=== PATIENT | female | born 1945 | race Caucasian/White ===

== ENCOUNTER 2017-07-10 05:16 | Inpatient (IN) | payer MEDICARE ==
[~2017-07-10] VITALS: Ht 162.6 cm; Wt 93.4 kg
[~2017-07-10 05:16] MED LIST: ACYCLOVIR 800800 MG PO; ATORVASTATIN CA40 MG PO; AZELASTINE205.5 MCG/ NASAL; COQ-10100 MG PO; ELIQUIS5 MG PO; FISH OIL 1,2001 EAC3 PO; FLONASE 0.05%50 MCG NASAL; KLOR-CON 1010 MEQ PO; LASIX 20 MG TAB20 MG PO; LOPRESSOR50 PO; MULTIVITAMINS PO; OSTEO BI-FLEX1 EAC3 PO; OYSTER SHELL 51 EACH PO; PREDNISONE 10 M10 MG PO; PROZAC20 MG PO; SYNTHROID75 MCG PO; VERTICALM25 MG PO; VITAMIN B-12500 MCG PO
[2017-07-10 05:44] VITALS: BP 97/49
[2017-07-10 06:03] LABS: ABSOLUTE EOSINOPHILS 0.3 thou/uL (0.0-0.7); ABSOLUTE MONOCYTES 0.6 thou/uL (0.0-1.2); ABSOLUTE NEUTROPHILS 2.4 thou/uL (1.6-8.1); BASOPHILS 0.6 %; EOSINOPHILS 4.8 %; HEMATOCRIT 41.3 % (37.0-47.0); HEMOGLOBIN 13.9 gm/dL (12.0-15.0); LYMPHOCYTES 38.6 %; MCH 29.2 pg (26.0-34.0); MCHC 33.7 g/dL (28.0-37.0); MCV 86.5 fL (80.0-100.0); MONOCYTES 11.2 %; MPV 7.8 fl. (7.2-11.1); NUCLEATED RBCS 0 /100WBC; PLATELET COUNT* 166 thou/uL (150-400); POLYS 44.8 %; RBC 4.78 mil/uL (4.20-5.00); WBC 5.3 thou/uL (4.0-11.0)
[2017-07-10 06:15] LABS: ANION GAP 4 mmol/L (7-16); BUN 17 mg/dL (7-18); CALCIUM 8.5 mg/dL (8.5-10.1); CHLORIDE 100 mmol/L (98-107); CO2 26 mmol/L (21-32); GLUCOSE 165 mg/dL (70-99); POTASSIUM 3.4 mmol/L (3.5-5.1); SODIUM 130 mmol/L (136-145)
[2017-07-10 06:27] LABS: ALBUMIN 3.5 g/dL (3.4-5.0); ALKALINE PHOSPHATASE 36 U/L (46-116); LIPASE 154 U/L (73-393); MAGNESIUM 1.8 mg/dL (1.8-2.4); NT-PRO BRAIN NAT PEPTIDE 275 pg/mL (<300); SGOT 46 U/L (15-37); SGPT 78 U/L (30-65); TOTAL BILIRUBIN 0.5 mg/dL (<0.1-1.0); TOTAL PROTEIN 6.6 g/dL (6.4-8.2); TROPONIN-I LEVEL <0.06 ng/mL (<0.06)
--- NOTE | 2017-07-10 06:45 | NUR ---
REASSESSED PT, PT APPEARS PALE, WARM, DIAPHORETIC, AND STATES SHE FEELS "BAD." PT OBSERVED TO BE MORE BRADYCARDIC THAT BEFORE, ORDERS FOR ATROPINE 0.5 AMP REC EIVED FROM DR MOHAN, SEE EMAR.
[2017-07-10 07:52] LABS: APTT 28.6 Seconds (25.0-31.3); INR 1.1
[2017-07-10 08:08] VITALS: BP 128/56
--- NOTE | 2017-07-10 10:13 | NUR ---
NOTIFIED BY CARDIOLOGY NURSE,MODE,THAT PT.IS HAVING AN AORTIC DISSECTION AND NEEDS TO BE TRANSFERRED TO [facility]. NSG.FOOD SERVICE LEAD TALKING TO [facility] TRANSFER TEAM. ACCEPTING DR.IS . SPOKE WITH HIM. CM CALLED [facility] AND EXPLAINED SITUATION BUT AMBULANCE FORM NOT FAXED YET. THEY WILL SEND AMBULANCE NOW. PAPERWORK COMPLETED. FAXED AMBULANCE FORM TO [facility] AM[facility]ANCE. CHART COPIED BY [place]. AND DISC OBTAINED FROM RADIOLOGY. PT.AND FAMILY AWARE OF TRANFER. COPY OF TRANSFER FORM PUT IN CHART PACKET. ROSALIA BASHIR GAVE REPORT TO RN AT [facility].
--- NOTE | 2017-07-10 11:19 | NUR ---
PT ARRIVED ON THE UNIT AT 0820 FROM THE ER. REPORT WAS TAKEN FROM ROSALIA [place]. PT ON CARDIAC MONITER TRACING SB HR 54. PT C/O CHEST PAIN DESCRIBED DULL RATED A 3 ON PAIN SCALE. PT IS ON ROOM AIR AND IS AFEBRILE. PT KEPT NPO PER CARDIOLOGY. PT DOWN FOR A CT SCAN. DR MEHTA CALLED TO REPORT PT PROBABLE FOR AORTIC DISECTION. PAGED DR MARSHALL TO CALL DR MEHTA. ZAFAR ROBERTSON SAW PT. PT TRANSFERRED TO [facility] AMBULANCE. PT LEFT THE FACILITY AT 1040. REPORT GIVEN TO ROSALIA LEWIS.
--- NOTE | 2017-07-10 14:38 | EKG ---
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1945 Requested By: Flavio Silveira Order Number: [id number] MD: Corby Vinson Measurements Intervals [place] Rate: 49 P: 25 NM: 209 QRS: 20 QRSD: 107 T: 28 QT: 488 QTc: 441 Interpretive Statements Sinus bradycardia Borderline T abnormalities, lateral leads Baseline wander in lead(s) I,III,aVL,V1,V2,V3,V4 Compared to ECG 10/30/2016 09:59:09 T-wave abnormality now present Sinus rhythm no longer present Myocardial infarct finding no longer present Electronically Signed On 07-10-2017 14:37:55 CDT by Corby Vinson [email or web address] <ELECTRONICALLY SIGNED> By: Cata Vinson MD, [facility] 07/10/17 1437 0533 Cata Vinson MD, [facility] /EPI
--- NOTE | 2017-07-11 13:31 | CON ---
[address] [address] CONSULTATION Name: DIANA BRISENO Room: [address] IN M.R.#: [id number] Admission: 07/10/17 Attend Phys: Fara De Dios MD Discharge: 07/10/17 Date of : 41 Report #: [id number] THIS REPORT FOR: //name// CC: Fara Muniz CARDIOLOGY CONSULTATION HISTORY OF PRESENT ILLNESS: I was asked by Dr. De Dios, the hospitalist and Dr. Silveira from the Emergency Room to see this 72-year-old white female in consultation for evaluation and treatment of bradycardia and chest pain. This lady was awakened at about 4 a.m. with severe of 10/10 chest pain involving her upper chest as well as her back that radiated down both arms and up into her neck and jaw. She says the pain is difficult to describe. It was just severe. She came to the Emergency Room and ultimately was found to have an acute aortic dissection involving the ascending aorta from the root and involving the transverse aorta as well, especially the proximal transverse aorta. She had some sinus bradycardia associated with this that was likely vagal secondary to the pain. This lady does have a past history of paroxysmal atrial fibrillation, essential hypertension, hypercholesterolemia, hypothyroidism, and mild to moderate aortic insufficiency. She has been followed by Dr. Rosenberg in our office. She has never had any vascular issues previously. Her home medications include potassium chloride 10 mEq daily, Eliquis 5 mg b.i.d., Azelastine nasal spray daily, Flonase nasal spray daily, Prozac 20 mg daily, metoprolol 50 mg b.i.d. She is supposed to also been on atorvastatin 40 mg daily and Lasix 20 mg daily, however, she may have discontinued those. She tells me in no uncertain terms that she did in fact have her Eliquis yesterday morning and last night. She denies difficulty with dyspnea on exertion, shortness of breath at rest, orthopnea or PND. She has not had edema. She has not had syncope or near syncope. Coronary risk factors include hypercholesterolemia, she says diabetes, she is not on any diabetic medicine, but she does check her blood sugar regularly and apparently has non-insulin dependent diabetes mellitus treated medically. She is treated with diet only apparently. She has high blood pressure. She has not been a smoker. She has not had a family history of heart disease. She has not had renal disease. She has had a stroke in the past. She has not had claudication. She does have a history of paroxysmal atrial fibrillation as previously mentioned. ALLERGIES: She has no known allergies. REVIEW OF SYSTEMS: Positive for cough, palpitations, chest discomfort, extremity edema in the distant past, diabetes, thyroid trouble, vomiting in the Emergency Room, which may have been the issue that was associated with her bradycardia and seasonal allergies. Otherwise, review of systems is negative for some 40 different complaints in 14 different system categories including central nervous system, general, respiratory, cardiovascular, endocrine, gastrointestinal, genitourinary, hematologic, lymphatic, allergic, immunologic, [place] [address] CONSULTATION Name: DIANA BRISENO Room: [address]#: [id number] Admission: 07/10/17 Attend Phys: Fara De Dios MD Discharge: 07/10/17 Date of : 41 Report #: [id number] psychiatric, musculoskeletal, skin, eyes, ears, nose, mouth, and throat. Please see review of system form for details and negatives in review of systems. SOCIAL HISTORY: She is . She is retired, does not smoke, drink or use illegal drugs. FAMILY HISTORY: Her mother did have a history of heart failure. She has a sister who of cancer and a brother who has diabetes. PHYSICAL EXAMINATION: GENERAL: She presents as a well-developed, well-nourished white female in no acute distress. VITAL SIGNS: Her pulse was 55 and regular, blood pressure was 120/80, respirations are 16 and regular. She is clinically afebrile. Note she was mildly hypotensive earlier with a blood pressure in the 90s. That was likely when she was also vagal. Respirations are 16 and regular. She is clinically afebrile. HEENT: Her head was atraumatic. Eyes clear. NECK: Supple. There is no jugular venous distention or hepatojugular reflux. Thyroid is not enlarged. There is no adenopathy. SKIN: Warm and dry. MOUTH: Mucous membranes are moist. LUNGS: Clear to auscultation and percussion. HEART: Revealed normal first and second heart sound. There is soft S4. There is no S3. There are no murmurs, rubs, thrills, heaves or gallops. PMI is nondisplaced. ABDOMEN: Soft, flat, nontender, no palpable masses, no organomegaly. EXTREMITIES: Reveal no cyanosis, clubbing or edema. Her pulses are diminished in her upper extremities and in her carotids. Her EKG showed sinus bradycardia, otherwise it was unremarkable. IMPRESSION: 1. Acute aortic dissection as described above. 2. Paroxysmal atrial fibrillation. 3. Essential hypertension. 4. Hypercholesterolemia. 5. Non-insulin dependent diabetes mellitus. 6. Hypothyroidism. 7. Sinus bradycardia, likely secondary to excessive vagal state. 8. Mild to moderate aortic insufficiency. 9. Status post cerebrovascular accident. RECOMMENDATION: She should be transferred to [place]. She is likely going to need surgery today. She should have her Eliquis reversed with PCC or Cofact [place] [address] CONSULTATION Name: DIANA BRISENO Room: [address]#: [id number] Admission: 07/10/17 Attend Phys: Fara De Dios MD Discharge: 07/10/17 Date of : 41 Report #: [id number] Thank you very much for asking me to see the patient. If there are any questions, please feel free to contact me. <ELECTRONICALLY SIGNED> By: Cata Vinson MD, FACC 07/11/17 1331 1057 1450F. Corby Vinson MD, FAC /nt
== END 2017-07-10 10:40 | disposition short-term general hospital (02) | DRG 300 ==
LOC: M.ERS 05:16 → M.TBA-ER 06:51 → M.2W 08:43
PROVIDERS: Emergency Medicine Emergency Medical Services; Personal Emergency Response Attendant; ADMIT Internal Medicine
DX: I71.01 Dissection of thoracic aorta (principal); I74.11 Embolism and thrombosis of thoracic aorta; E11.9 Type 2 diabetes mellitus without complications; I48.91 Unspecified atrial fibrillation; F32.9 Major depressive disorder, single episode, unspecified; I48.0 Paroxysmal atrial fibrillation; E78.00 Pure hypercholesterolemia, unspecified; E03.9 Hypothyroidism, unspecified; R00.1 Bradycardia, unspecified; I35.1 Nonrheumatic aortic (valve) insufficiency; Z79.01 Long term (current) use of anticoagulants; Z86.73 Personal history of transient ischemic attack (TIA), and cerebral infarction without residual deficits; Z86.010 Personal history of colon polyps; Z82.49 Family history of ischemic heart disease and other diseases of the circulatory system; Z83.3 Family history of diabetes mellitus

== ENCOUNTER 2017-08-19 16:29 | Inpatient (IN) | payer MEDICARE ==
[~2017-08-19] VITALS: Ht 162.6 cm; Wt 83.5 kg
[2017-08-19 16:34] VITALS: BP 150/78
[2017-08-19] MEDS ORDERED: PACERONE 200 M200 M1 PO (16:43)
[2017-08-19] MEDS ORDERED: ATORVASTATIN CA40 MG PO (16:44)
[2017-08-19] MEDS ORDERED: COLACE100 MG PO (16:45)
[2017-08-19] MEDS ORDERED: PEPCID20 MG PO (16:45)
[2017-08-19] MEDS ORDERED: LASIX 20 MG TAB20 MG PO (16:46)
[2017-08-19] MEDS ORDERED: PRANDIN1 MG PO (16:48)
[2017-08-19] MEDS ORDERED: BACTRIM DS TAB1 EACH PO (16:51)
[2017-08-19 16:54] LABS: ABSOLUTE EOSINOPHILS 0.1 thou/uL (0.0-0.7); ABSOLUTE LYMPHOCYTES 1.6 thou/uL (0.8-5.3); ABSOLUTE MONOCYTES 0.8 thou/uL (0.0-1.2); ABSOLUTE NEUTROPHILS 4.8 thou/uL (1.6-8.1); BASOPHILS 0.7 %; EOSINOPHILS 1.8 %; HEMATOCRIT 39.2 % (37.0-47.0); HEMOGLOBIN 13.2 gm/dL (12.0-15.0); LYMPHOCYTES 21.4 %; MCH 29.4 pg (26.0-34.0); MCHC 33.8 g/dL (28.0-37.0); MONOCYTES 10.7 %; MPV 7.3 fl. (7.2-11.1); NUCLEATED RBCS 0 /100WBC; PLATELET COUNT* 187 thou/uL (150-400); POLYS 65.4 %; RBC 4.51 mil/uL (4.20-5.00); RDW-CV 15.4 % (10.5-14.5); WBC 7.4 thou/uL (4.0-11.0)
[2017-08-19 17:06] LABS: ANION GAP 10 mmol/L (7-16); BUN 23 mg/dL (7-18); CALCIUM 9.1 mg/dL (8.5-10.1); CHLORIDE 99 mmol/L (98-107); CO2 28 mmol/L (21-32); CREATININE 1.4 mg/dL (0.6-1.3); GLUCOSE 128 mg/dL (70-99); POTASSIUM 3.9 mmol/L (3.5-5.1); SODIUM 137 mmol/L (136-145)
[2017-08-19 17:14] LABS: ALBUMIN 4.1 g/dL (3.4-5.0); ALKALINE PHOSPHATASE 98 U/L (46-116); LIPASE 273 U/L (73-393); SGOT 56 U/L (15-37); SGPT 75 U/L (30-65); TOTAL BILIRUBIN 0.5 mg/dL (<0.1-1.0); TOTAL PROTEIN 7.7 g/dL (6.4-8.2); TROPONIN-I LEVEL <0.06 ng/mL (<0.06)
[2017-08-19 19:44] LABS: URINE BILIRUBIN NEGATIVE (Negative); URINE BLOOD NEGATIVE (Negative); URINE CLARITY CLEAR; URINE COLOR YELLOW; URINE GLUCOSE-RANDOM NEGATIVE (Negative); URINE KETONES NEGATIVE (Negative); URINE LEUKOCYTES-REFLEX NEGATIVE (Negative); URINE NITRITE-REFLEX NEGATIVE (Negative); URINE PROTEIN NEGATIVE (Negative); URINE SPECIFIC GRAVITY 1.015 (1.005-1.030); URINE UROBILINOGEN 0.2 E.U./dl (0.2-1.0)
[2017-08-19 20:41] VITALS: BP 148/71
[2017-08-20] VITALS (7 sets, daily range): BP systolic 118–157; BP diastolic 53–74
[2017-08-20 09:37] LABS: ABSOLUTE EOSINOPHILS 0.1 thou/uL (0.0-0.7); ABSOLUTE LYMPHOCYTES 1.3 thou/uL (0.8-5.3); ABSOLUTE MONOCYTES 0.4 thou/uL (0.0-1.2); ABSOLUTE NEUTROPHILS 2.6 thou/uL (1.6-8.1); BASOPHILS 0.8 %; EOSINOPHILS 3.4 %; HEMATOCRIT 36.3 % (37.0-47.0); HEMOGLOBIN 12.2 gm/dL (12.0-15.0); LYMPHOCYTES 28.7 %; MCH 29.3 pg (26.0-34.0); MCHC 33.5 g/dL (28.0-37.0); MCV 87.3 fL (80.0-100.0); MONOCYTES 8.2 %; MPV 7.4 fl. (7.2-11.1); NUCLEATED RBCS 0 /100WBC; PLATELET COUNT* 145 thou/uL (150-400); POLYS 58.9 %; RBC 4.16 mil/uL (4.20-5.00); RDW-CV 15.8 % (10.5-14.5); WBC 4.4 thou/uL (4.0-11.0)
[2017-08-20 09:44] LABS: CALCIUM 8.4 mg/dL (8.5-10.1); POTASSIUM 4.9 mmol/L (3.5-5.1)
[2017-08-20] MEDS ORDERED: COZAAR 25 MG TA25 M2 PO (11:36)
--- NOTE | 2017-08-20 17:07 | EKG ---
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 Santo : 1945 Requested By: Flavio Silveira Order Number: [id number] MD: Lobito Rosenberg Measurements Intervals [place] Rate: 61 P: 71 MN: 205 QRS: 4 QRSD: 110 T: 68 QT: 474 QTc: 478 Interpretive Statements Sinus rhythm Probable anterior infarct, old Compared to ECG 07/10/2017 05:33:33 Myocardial infarct finding now present Sinus bradycardia no longer present T-wave abnormality no longer present Electronically Signed On 08-20-2017 17:07:12 CDT by Lobito Rosenberg [email or web address] <ELECTRONICALLY SIGNED> By: Lobito Rosenberg MD, FAC 08/20/17 1707 1636 1636 Lobito Rosenberg MD, FAC /EPI
--- NOTE | 2017-08-25 08:49 | CON ---
[address] [address] CONSULTATION Name: DIANA BRISENO Room: [address] IN M.R.#: [id number] Admission: 08/19/17 Attend Phys: Kiet Adams Discharge: 08/20/17 Date of : 41 Report #: [id number] THIS REPORT FOR: //name// CC: Jessenia Cristy Alcantara DATE OF SERVICE: 08/20/2017 INPATIENT CONSULTATION REASON FOR CONSULTATION: Hypotension, orthostasis, status post aortic root resection, repair. HISTORY OF PRESENT ILLNESS: The patient is a 72-year-old patient of Dr. Vinson in our practice who diagnosed this patient with type 1 aortic root dissection and she was transferred urgently on 07/11/2017 to [facility] for repair with Dr. Cat. She was in the hospital for approximately 2 weeks and then in rehab for another 2-3 weeks and had been back in the hospital for urinary tract infection, but now was seen in her doctor's office and was found to be orthostatic. She has a history of remote malignant hypertension. Clinically, she has been given IV fluids and feels better this morning, has been up and around. On initial presentation, she was orthostatic. Her systolic pressure dropped from 156/76 to 118/52. She denies chest pain or pressure. She has a history of atrial fibrillation, but has maintained a sinus rhythm on amiodarone and full anticoagulation. She denies falls. She has continued weakness after being discharged from rehab. She never really had much in the way of chest or back pain at the time of her initial dissection procedure and this wound has healed well and she has no complaints of chest wall pain or chest discomfort. PAST MEDICAL HISTORY: Ascending aortic aneurysm status post resection, dissection; atrial fibrillation, paroxysmal; hypertension, malignant; diverticulosis; history of glaucoma and hyperlipidemia. She has a prior history of CVA in 2012 and had been on full anticoagulation with Eliquis. HOME MEDICATIONS: Including amiodarone 200 mg daily, Eliquis 5 mg p.o. b.i.d., baby aspirin 81 mg daily, Lipitor 40 mg daily, CoQ10, famotidine 20 mg daily, Prozac 20 mg daily, Flonase, Lasix 20 mg daily, Synthroid 112 mcg daily, metoprolol 50 mg p.o. b.i.d., losartan 25 mg p.o. b.i.d., [place] [address] CONSULTATION Name: DIANA BRISENO Room: [address]#: [id number] Admission: 08/19/17 Attend Phys: Kiet Adams Discharge: 08/20/17 Date of : 41 Report #: [id number] 10 mEq daily. SOCIAL HISTORY: She is a nonsmoker. She is . REVIEW OF SYSTEMS: GASTROINTESTINAL: No abdominal pain, nausea or vomiting. GENITOURINARY: No dysuria or hematuria. Positive urinary tract infection, which has since resolved. SKIN: No rashes. No incisional drainage or swelling. GENERAL: No fevers or chills. CHEST: Chest wall, she denies any incisional chest pain or redness. NEUROLOGIC: Denies slurred speech, numbness or weakness. PHYSICAL EXAMINATION: VITAL SIGNS: This morning, her blood pressure is 118/57, pulse is 89. GENERAL: This is a moderately obese elderly female. She is alert, coherent, in no apparent distress. HEENT: Eyes: EOMs intact. No facial asymmetry NECK: Supple. No jugular venous distention. Carotid upstrokes are normal. There are no bruits. CARDIOVASCULAR: Regular. I could not hear a murmur. ABDOMEN: Soft, nontender, nondistended. EXTREMITIES: No peripheral edema. SKIN: Warm and dry. Electrocardiogram shows a sinus rhythm, normal ST segments. LABORATORY DATA: Hemoglobin is 12.2, white blood cell count is 4.4, platelet count is 145,000. Sodium is 141, potassium 4.9, chloride is 106, CO2 is 30, BUN is 14, creatinine is 1.0. Chest x-ray shows no acute cardiopulmonary abnormality. IMPRESSION AND PLAN: 1. Orthostasis. We will make some adjustments to her medications. She has not really been having much edema over the last several days, so I will discontinue her Lasix. I will decrease her losartan, to once daily. 2. Hypertension. I would like to resume her beta vilma therapy and one dose of losartan. 3. Status post aortic root repair. She is doing well postoperatively, but still has ways to go in regards to rehabilitation. I would like to enroll her in cardiac rehab at this hospital. 4. Atrial fibrillation, paroxysmal. She will continue with amiodarone and [address] [address] CONSULTATION Name: DIANA BRISENO: [address] IN M.R.#: [id number] Admission: 08/19/17 Attend Phys: Kiet Adams Discharge: 08/20/17 Date of : 41 Report #: [id number] apixaban until followup and likely will discontinue her amiodarone in the next month or so. <ELECTRONICALLY SIGNED> By: Lobito Rosenberg MD, FACC 08/25/17 0849 1030 1223Lobito Rosenberg MD, FACC /nt
== END 2017-08-20 12:30 | disposition home or self-care (01) | DRG 683 ==
LOC: M.ERS 16:29 → M.2W 18:38 → M.TBA-ER 18:38 → M.2W 20:49
PROVIDERS: Emergency Medicine Emergency Medical Services; Internal Medicine; ADMIT Internal Medicine
DX: N17.9 Acute kidney failure, unspecified (principal); D68.69 Other thrombophilia; I95.1 Orthostatic hypotension; E11.9 Type 2 diabetes mellitus without complications; F32.9 Major depressive disorder, single episode, unspecified; I48.0 Paroxysmal atrial fibrillation; I10 Essential (primary) hypertension; E86.0 Dehydration; E78.5 Hyperlipidemia, unspecified; H40.9 Unspecified glaucoma; K57.90 Diverticulosis of intestine, part unspecified, without perforation or abscess without bleeding; Z86.73 Personal history of transient ischemic attack (TIA), and cerebral infarction without residual deficits; Z79.82 Long term (current) use of aspirin; Z79.899 Other long term (current) drug therapy

== ENCOUNTER 2017-08-31 16:55 | Inpatient (IN) | payer MEDICARE ==
[~2017-08-31] VITALS: Ht 162.6 cm; Wt 79.7 kg
[~2017-08-31 16:55] MED LIST changes: +BACTRIM DS TAB1 EACH PO; +COLACE100 MG PO; +COZAAR 25 MG TA25 M2 PO; +PACERONE 200 M200 M1 PO; +PEPCID20 MG PO; +PRANDIN1 MG PO
[2017-08-31 16:59] VITALS: BP 173/92
[2017-08-31 17:13] LABS: ABSOLUTE EOSINOPHILS 0.1 thou/uL (0.0-0.7); ABSOLUTE LYMPHOCYTES 1.5 thou/uL (0.8-5.3); ABSOLUTE MONOCYTES 0.6 thou/uL (0.0-1.2); ABSOLUTE NEUTROPHILS 5.6 thou/uL (1.6-8.1); BASOPHILS 0.3 %; EOSINOPHILS 1.8 %; HEMATOCRIT 39.2 % (37.0-47.0); HEMOGLOBIN 13.3 gm/dL (12.0-15.0); MCH 29.5 pg (26.0-34.0); MCV 86.9 fL (80.0-100.0); MONOCYTES 7.1 %; MPV 7.3 fl. (7.2-11.1); NUCLEATED RBCS 0 /100WBC; PLATELET COUNT* 156 thou/uL (150-400); POLYS 71.8 %; RBC 4.51 mil/uL (4.20-5.00); RDW-CV 15.4 % (10.5-14.5); WBC 7.9 thou/uL (4.0-11.0)
[2017-08-31 17:23] LABS: APTT 27.5 Seconds (25.0-31.3); INR 1.1; PROTIME 10.8 Seconds (9.20-11.50)
[2017-08-31 17:30] LABS: ANION GAP 7 mmol/L (7-16); BUN 17 mg/dL (7-18); CALCIUM 8.9 mg/dL (8.5-10.1); CHLORIDE 102 mmol/L (98-107); CO2 31 mmol/L (21-32); CREATININE 0.8 mg/dL (0.6-1.3); GLUCOSE 106 mg/dL (70-99); POTASSIUM 4.6 mmol/L (3.5-5.1); SODIUM 140 mmol/L (136-145)
[2017-08-31 17:48] LABS: ALBUMIN 3.8 g/dL (3.4-5.0); ALKALINE PHOSPHATASE 69 U/L (46-116); CK-MB MASS 0.5 ng/mL (<0.5-3.6); LIPASE 263 U/L (73-393); MAGNESIUM 1.8 mg/dL (1.8-2.4); NT-PRO BRAIN NAT PEPTIDE 380 pg/mL (<300); SGOT 49 U/L (15-37); SGPT 60 U/L (30-65); TOTAL BILIRUBIN 0.7 mg/dL (<0.1-1.0); TOTAL PROTEIN 7.2 g/dL (6.4-8.2); TROPONIN-I LEVEL <0.06 ng/mL (<0.06)
[2017-08-31 19:51] VITALS: BP 170/68
[2017-08-31 20:10] VITALS: BP 146/66
[2017-08-31] MEDS ORDERED: LOPRESSOR50 PO (21:29)
[2017-08-31] MEDS ORDERED: LOPRESSOR25 PO (21:31)
[2017-08-31 23:57] VITALS: BP 151/77
[2017-09-01 04:00] VITALS: BP 125/81
[2017-09-01 05:35] LABS: HEMATOCRIT 36.5 % (37.0-47.0); HEMOGLOBIN 12.5 gm/dL (12.0-15.0); MCH 29.3 pg (26.0-34.0); MCHC 34.3 g/dL (28.0-37.0); MCV 85.6 fL (80.0-100.0); MPV 7.9 fl. (7.2-11.1); RBC 4.26 mil/uL (4.20-5.00); RDW-CV 15.4 % (10.5-14.5); WBC 5.1 thou/uL (4.0-11.0)
[2017-09-01 06:22] LABS: ALBUMIN 3.4 g/dL (3.4-5.0); CALCIUM 8.6 mg/dL (8.5-10.1); CREATININE 0.9 mg/dL (0.6-1.3); TOTAL BILIRUBIN 0.6 mg/dL (<0.1-1.0); TOTAL PROTEIN 6.2 g/dL (6.4-8.2)
[2017-09-01 12:00] VITALS: BP 158/73
[2017-09-01 12:05] VITALS: BP 131/68
[2017-09-01 12:08] VITALS: BP 119/53
--- NOTE | 2017-09-01 13:01 | EKG ---
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1945 Requested By: Jed Celis Order Number: [id number] MD: Filipe Molina Measurements Intervals [place] Rate: 62 P: [place]: QRS: 30 QRSD: 120 T: 4 QT: 463 QTc: 471 Interpretive Statements Atrial flutter Nonspecific intraventricular conduction delay Consider anterior infarct Nonspecific T abnormalities, lateral leads Compared to ECG 08/19/2017 16:36:15 Intraventricular conduction delay now present T-wave abnormality now present Myocardial infarct finding still present Electronically Signed On 09-01-2017 13:01:29 CDT by Filipe Molina [email or web address] <ELECTRONICALLY SIGNED> By: Filipe Molina MD, [facility] 09/01/17 1301 1657 1657 Filipe Molina MD, [facility] /EPI
--- NOTE | 2017-09-01 13:07 | EKG ---
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[facility] : 1945 Requested By: Jed Celis Order Number: [id number] Nita MD: Filipe Molina Measurements Intervals [place] Rate: 69 P: 47 HI: 207 QRS: 41 QRSD: 117 T: 20 QT: 429 QTc: 460 Interpretive Statements Sinus rhythm Nonspecific intraventricular conduction delay Consider anterior infarct Compared to ECG 08/19/2017 16:36:15 Intraventricular conduction delay now present Myocardial infarct finding still present Electronically Signed On 09-01-2017 13:07:27 CDT by Filipe Molina [email or web address] <ELECTRONICALLY SIGNED> By: Filipe Molina MD, [facility] 09/01/17 1307 0010 0010 Filipe Molina MD, [facility] /EPI
--- NOTE | 2017-09-01 13:11 | EKG ---
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[facility] : 1945 Requested By: Jed Celis Order Number: [id number] Reading MD: Filipe Molina Measurements Intervals [place] Rate: 70 P: 57 [place]: 194 QRS: 36 QRSD: 117 T: 45 QT: 437 QTc: 472 Interpretive Statements Sinus rhythm Probable left ventricular hypertrophy Anterior Q waves, possibly due to LVH Compared to ECG 08/19/2017 16:36:15 Left ventricular hypertrophy now present Q waves now present Electronically Signed On 09-01-2017 13:11:43 CDT by Filipe Molina [email or web address] <ELECTRONICALLY SIGNED> By: Filipe Molina MD, [facility] 09/01/17 1311 0510 0510 Filipe Molina MD, [facility] /EPI
--- NOTE | 2017-09-01 14:17 | 2DMMODE ---
[place] [address] 2 D/M-MODE ECHOCARDIOGRAM Name: DIANA BRISENO Room: [place] [address] ADM IN [facility]#: [id number] Admission: 08/31/17 Attend Phys: Fara De Dios, Discharge: Date of : 41 Date of Service: 09/01/17 1417 Report #: [id number] THIS REPORT FOR: //name// APPROVED REPORT Study performed: 09/01/2017 10:43:55 EXAM: Comprehensive 2D, Doppler, and color-flow Echocardiogram Patient Location: In-Patient Room #: [facility] Status: routine BSA: 1.88 HR: 66 bpm BP: 125/81 mmHg Rhythm: NSR Other Information Study Quality: Good Indications Chest Pain hx of aortic root dissection 2D Dimensions LVEF(%): 51.68 (>50%) IVSd: 11.38 (7-11mm) LVOT Diam: 19.37 (18-24mm) LVDd: 38.52 mm PWd: 12.82 (7-11mm) LVDs: 28.52 (25-40mm) Aortic Root: 34.27 mm Scott's LVEF: 51.68 % Volumes Left Atrial Volume (Systole) LA ESV Index: 31.50 mL/m2 Aortic Valve AoV Peak Charles.: 1.66 m/s AO Peak Gr.: 11.05 mmHg LVOT Max P.95 mmHg AO Mean Gr.: 6.61 mmHg LVOT Mean P.55 mmHg LVOT Max V: 0.86 m/s AO V2 VTI: 34.79 cm LVOT Mean V: 0.57 m/s ANNIE (VTI): 1.66 cm2 LVOT V1 VTI: 19.64 cm AI Coleman: 3.00 m/s2 AI PHT: 493.18 [place] [address] 2 D/M-MODE ECHOCARDIOGRAM Name: DIANA BRISENO Room: [address] IN .R.#: [id number] Admission: 08/31/17 Attend Phys: Fara De Dios, Discharge: Date of : 41 Date of Service: 09/01/17 1417 Report #: [id number] Mitral Valve E/A Ratio: 0.81 MV Decel. Time: 238.27 ms MV E Max Charles.: 0.80 m/s MV PHT: 69.10 ms MVA (PHT): 3.18 cm2 TDI E/Lateral E': 7.27 E/Medial E': 11.43 Medial E' Charles.: 0.07 m/s Lateral E' Charles.: 0.11 m/s Pulmonary Valve PV Peak Charles.: 1.17 m/s PV Peak Gr.: 5.51 mmHg Tricuspid Valve TR Peak Gr.: 18.12 mmHg RVSP: 23.00 mmHg Left Ventricle The left ventricle is normal size. There is normal LV segmental wall motion. There is normal left ventricular wall thickness. Left ventricular systolic function is normal. The left ventricular ejection fraction is within the normal range. LVEF is 55-60%. Grade I - abnormal relaxation pattern. Right Ventricle The right ventricle is normal size. The right ventricular systolic function is normal. Atria The left atrium size is normal. The right atrium size is normal. Aortic Valve Mild aortic valve sclerosis. Mild aortic regurgitation. No hemodynamically significant valvular aortic stenosis. Mitral Valve Mild mitral annular calcification. Mild mitral regurgitation. No evidence of mitral valve stenosis. Tricuspid Valve The tricuspid valve is normal in structure. Mild tricuspid regurgitation. The RVSP is ___23____ [place] [address] 2 D/M-MODE ECHOCARDIOGRAM Name: DIANA BRISENO Room: [address] IN [facility]#: [id number] Admission: 08/31/17 Attend Phys: Fara De Dios, Discharge: Date of : 41 Date of Service: 09/01/17 1417 Report #: [id number] Pulmonic Valve The pulmonary valve is normal in structure. There is no pulmonic valvular regurgitation. Great Vessels The aortic root is normal in size. IVC is normal in size and collapses with >50% inspiration Pericardium There is no pericardial effusion. <Conclusion> The left ventricle is normal size. There is normal left ventricular wall thickness. Left ventricular systolic function is normal. The left ventricular ejection fraction is within the normal range. LVEF is 55-60%. Grade I - abnormal relaxation pattern. The right ventricle is normal size. The left atrium size is normal. Mild aortic valve sclerosis. Mild aortic regurgitation. No hemodynamically significant valvular aortic stenosis. Mild mitral annular calcification. Mild mitral regurgitation. No evidence of mitral valve stenosis. The tricuspid valve is normal in structure. Mild tricuspid regurgitation. The RVSP is ___23____ mmHg. IVC is normal in size and collapses with >50% inspiration There is no pericardial effusion. There is normal LV segmental wall motion. <ELECTRONICALLY SIGNED> By: Filipe Molina MD, FACC 09/01/17 1417 16 141 Filipe Molina MD, FACC /INF
[2017-09-01 16:00] VITALS: BP 144/73
[2017-09-01 20:20] VITALS: BP 146/76
[2017-09-02] VITALS: BP 185/87
[2017-09-02 04:00] VITALS: BP 117/63
[2017-09-02 08:00] VITALS: BP 134/76
--- NOTE | 2017-09-02 11:43 | EKG ---
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1945 Requested By: Urmila Case Order Number: [id number] Reading MD: Lobito Rosenberg Measurements Intervals [place] Rate: 84 P: 27 [place]: 183 QRS: 29 QRSD: 113 T: QT: 409 QTc: 484 Interpretive Statements Sinus rhythm Probable left ventricular hypertrophy Anterior Q waves, possibly due to LVH Compared to ECG 09/01/2017 05:10:55 No significant changes Electronically Signed On 09-02-2017 11:43:10 CDT by Lobito Rosenberg [email or web address] <ELECTRONICALLY SIGNED> By: Lobito Rosenberg MD, FACC 09/02/17 1143 1026 1026 Lobito Rosenberg MD, [facility] /EPI
[2017-09-02 12:00] VITALS: BP 136/68
[2017-09-02 16:00] VITALS: BP 150/75
[2017-09-02 23:46] VITALS: BP 140/65
[2017-09-03 03:36] VITALS: BP 138/71
[2017-09-03 05:10] LABS: CALCIUM 8.8 mg/dL (8.5-10.1); CREATININE 0.9 mg/dL (0.6-1.3); MAGNESIUM 1.9 mg/dL (1.8-2.4); POTASSIUM 4.6 mmol/L (3.5-5.1)
[2017-09-03 08:00] VITALS: BP 113/60; BP 117/86
[2017-09-03 11:30] VITALS: BP 145/69
[2017-09-03 16:00] VITALS: BP 165/85
[2017-09-03 20:00] VITALS: BP 123/65
[2017-09-04] VITALS (7 sets, daily range): BP systolic 78–181; BP diastolic 38–91
[2017-09-04 04:30] LABS: HEMATOCRIT 38.9 % (37.0-47.0); HEMOGLOBIN 13.1 gm/dL (12.0-15.0); MCH 28.8 pg (26.0-34.0); MCHC 33.8 g/dL (28.0-37.0); MCV 85.3 fL (80.0-100.0); MPV 7.9 fl. (7.2-11.1); RBC 4.56 mil/uL (4.20-5.00); RDW-CV 15.6 % (10.5-14.5); WBC 4.7 thou/uL (4.0-11.0)
[2017-09-04 04:49] LABS: ALBUMIN 3.6 g/dL (3.4-5.0); CREATININE 0.9 mg/dL (0.6-1.3); POTASSIUM 4.2 mmol/L (3.5-5.1); TOTAL BILIRUBIN 0.7 mg/dL (<0.1-1.0); TOTAL PROTEIN 6.5 g/dL (6.4-8.2)
[2017-09-04] MEDS ORDERED: REGLAN 10 MG TA10 MG PO (11:53)
[2017-09-05] VITALS (8 sets, daily range): BP systolic 62–156; BP diastolic 39–79
--- NOTE | 2017-09-05 10:00 | CON ---
[address] [address] CONSULTATION Name: DIANA BRISENO Room: [address] IN M.R.#: [id number] Admission: 08/31/17 Attend Phys: Fara De Dios MD Discharge: Date of : 41 Report #: [id number] THIS REPORT FOR: //name// CC: Fara Muniz DATE OF SERVICE: 09/01/2017 ADDENDUM I have personally seen and examined the patient and reviewed labs and imaging studies. The patient with history of intermittent nausea and vomiting and diabetes who also reports history of weight loss. She has had AAA repair 6 weeks ago. She also has had history of recent CVA. She has a-fib, for which she is on Eliquis. We will consider gastric emptying test tomorrow to evaluate her symptoms of nausea and vomiting and occasional vomiting of food that she may have eaten the day before. I will put her on double dose of PPI meanwhile and continue monitoring her. <ELECTRONICALLY SIGNED> By: Dai Amezcua MD 09/05/17 1000 1755 0213Dai Amezcua MD /nt
--- NOTE | 2017-09-05 10:00 | CON ---
[address] [address] CONSULTATION Name: DIANA BRISENO Room: [address] IN M.R.#: [id number] Admission: 08/31/17 Attend Phys: Fara De Dios MD Discharge: Date of : 41 Report #: [id number] THIS REPORT FOR: //name// CC: Fara Muniz DICTATED BY: Kayli Antony [facility] DATE OF SERVICE: 09/01/2017 Please note at the time of this dictation, the patient was seen and physically examined by myself. REASON FOR CONSULTATION: Nausea and vomiting and some likely noncardiac chest pain. ALLERGIES: No known drug allergies. MEDICATIONS: From home, see MAR. She denies any NSAID use. REASON FOR CONSULTATION: As noted above. HISTORY OF PRESENT ILLNESS: This is a 72-year-old female who presented to the Emergency Room after being prompted by her home health nurse because she had mentioned that she had some chest pain. The patient states that she has been having this intermittent chest discomfort, but she describes it started the evening before her admission. She also had some nausea and vomiting and denies any hematemesis with that yesterday. She also states she has had a 20-pound weight loss and feels very weak. The patient did undergo a colonoscopy with us back in 2014 that showed tubular adenoma and hyperplastic polyps otherwise essentially negative. The patient denies any NSAID use at this time. However, she is on Eliquis for her history of atrial fibrillation. She denies any fever or chills or any abdominal discomfort at this time. She states her bowels move about daily to every other day, soft and formed with no evidence of any bright red blood. Back in June, the patient was here at [facility] for bradycardia and chest pain and she was noted to have found an acute aortic dissection involving the ascending aorta from the root involving into the transverse aorta. She was then transferred to [place]. She underwent surgery. Subsequently, after surgery she had a stroke and was in the hospital for several weeks and then went to a rehab for another 2-3 weeks and was back in the hospital the end of July with a UTI and then discharged the subsequent day. PAST MEDICAL HISTORY: History of CVA, recent TIAs in the past, diabetes, thyroid problems, atrial fib [place] [address] CONSULTATION Name: DIANA BRISENO Room: [address] IN [facility]#: [id number] Admission: 08/31/17 Attend Phys: Fara De Dios MD Discharge: Date of : 41 Report #: [id number] PAST SURGICAL HISTORY: Tubal ligation, tonsillectomy and her aortic dissection repair. ALLERGIES: None. MEDICATIONS: From home include vitamin B12, Prozac, Eliquis, Lopressor, Cozaar, Pepcid, Colace, Synthroid, Coenzyme Q10, Flonase, Prandin, Lipitor and amiodarone. FAMILY HISTORY: Noncontributory. SOCIAL HISTORY: Denies any tobacco, alcohol or illegal drug use at this point. She lives at home with her . REVIEW OF SYSTEMS: Twelve-point review of systems is essentially negative except what is mentioned in the HPI. PHYSICAL EXAMINATION: VITAL SIGNS: Temperature 36.5, pulse 92, respirations 16 and blood pressure 119/53. HEART: Regular rate and rhythm. LUNGS: Clear. ABDOMEN: Soft, positive bowel sounds in all 4 quadrants with no masses or tenderness noted. LABORATORY DATA: Hemoglobin 12.5, hematocrit 36.5, white count is 5.1 and platelets 141. Sodium 143, potassium 5, chloride 106, CO2 30, BUN is 11, creatinine 0.9, GFR 61, glucose is 112, total bilirubin 0.6, alkaline phosphatase 60, ALT [address] and AST is 46. CT of the abdomen and pelvis was essentially negative. IMPRESSION: 1. Nausea and vomiting, improved. 2. Weight loss of 20 pounds. 3. Anticoagulant therapy, atrial fibrillation, Eliquis. 4. Recent cerebrovascular accident. 5. Thrombocytopenia. PLAN: 1. Barium swallow. 2. Full liquid diet after testing has been done. 3. Further recommendations to be made once Dr. Amezcua sees the patient [place] [address] CONSULTATION Name: DIANA BRISENO Room: [place] [address] ADM IN M.R.#: [id number] Admission: 08/31/17 Attend Phys: Fara De Dios MD Discharge: Date of : 41 Report #: [id number] Thank you for allowing us to participate in this patient's care. Please do not hesitate to call with any questions in regard to this consult. <ELECTRONICALLY SIGNED> By: Dai Amezcua MD 09/05/17 1000 1421 [id number] Amezcua MD /nt
[2017-09-06] VITALS (9 sets, daily range): BP systolic 96–175; BP diastolic 46–89
[2017-09-06] MEDS ORDERED: REGLAN 10 MG TA10 MG PO (09:28)
[2017-09-06] MEDS ORDERED: FLORINEF ACETA0.1 MG PO (09:28)
== END 2017-09-06 13:30 | disposition home health service (06) | DRG 74 ==
LOC: M.ERS 16:55 → M.TBA-ER 17:40 → M.2W 17:40
PROVIDERS: Family Medicine; Internal Medicine; ADMIT Internal Medicine
DX: E11.43 Type 2 diabetes mellitus with diabetic autonomic (poly)neuropathy (principal); E44.0 Moderate protein-calorie malnutrition; I50.32 Chronic diastolic (congestive) heart failure; I48.92 Unspecified atrial flutter; K31.84 Gastroparesis; I95.1 Orthostatic hypotension; E66.9 Obesity, unspecified; I73.9 Peripheral vascular disease, unspecified; F32.9 Major depressive disorder, single episode, unspecified; I35.1 Nonrheumatic aortic (valve) insufficiency; G31.84 Mild cognitive impairment of uncertain or unknown etiology; D69.6 Thrombocytopenia, unspecified; I48.0 Paroxysmal atrial fibrillation; E78.5 Hyperlipidemia, unspecified; E03.9 Hypothyroidism, unspecified; Z79.2 Long term (current) use of antibiotics; Z98.890 Other specified postprocedural states; Z86.73 Personal history of transient ischemic attack (TIA), and cerebral infarction without residual deficits; Z79.01 Long term (current) use of anticoagulants; Z79.4 Long term (current) use of insulin; Z68.30 Body mass index [BMI] 30.0-30.9, adult; Z79.899 Other long term (current) drug therapy

== ENCOUNTER → 2019-11-30 | Outpatient (CLI) | payer OTHER ==
[~2019-11-30] MED LIST changes: +FLORINEF ACETA0.1 MG PO; +LOPRESSOR25 PO; +REGLAN 10 MG TA10 MG PO
== END ==
LOC: M.RAD 11-29 12:46
PROVIDERS: ATTEND Family Medicine
DX: Z12.31 Encounter for screening mammogram for malignant neoplasm of breast (principal); M81.0 Age-related osteoporosis without current pathological fracture; M85.88 Other specified disorders of bone density and structure, other site

== ENCOUNTER → 2019-12-13 | Outpatient (CLI) | payer OTHER | LOC: M.ULTRA 10:30 | PROVIDERS: ATTEND Family Medicine | DX: N63.11 Unspecified lump in the right breast, upper outer quadrant (principal); N63.21 Unspecified lump in the left breast, upper outer quadrant ==

== ENCOUNTER → 2019-12-21 | Outpatient (CLI) | payer OTHER ==
--- NOTE | 2019-12-28 11:07 | PATH ---
[address] [address] PATHOLOGY RPT PROCEDURE Name: DIANA BRISENO Room: [facility]#: [id number] Admission: 12/21/19 Date of : 41 Discharge: Report #: [id number] Path Case #: [id number] [facility] Accession Number: [id number] . 01 Material submitted: . PART A: breast - LEFT BREAST BIOPSY, 1:00, 4CMFN. Modifiers: left, 1:00 PART B: breast - RIGHT BREAST BIOPSY, 11:00, 4CMFN. Modifiers: right, 11:00 . 01 Clinical history: . MAMATOME BIOPSY, BILATERAL BREAST NODULES A. 0.86 x 1.22 x 1.05 cm B. 0.83 x 0.81 x 0.78 cm . 02 Diagnosis: A. 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 - LOBULAR CARCINOMA IN SITU, LOW-GRADE, WITH CALCIFICATIONS. SEE COMMENT. . B. Right breast, 11:00, 4 cm from nipple, image-guided core biopsies: - INFILTRATING DUCTAL ADENOCARCINOMA, LOW-GRADE, SPANNING 9 MM. - DCIS, NUCLEAR GRADE I, CRIBRIFORM TYPE. SEE COMMENT. . (MARC:jorge; 12/25/2019) . . A: Surgical Pathology Cancer Case Summary . Procedure ___ Other: Image-guided core biopsy . Specimen Laterality ___ Left . Tumor Site ___ Clock position: 1 o'clock ___ Distance from nipple: 4 cm . Tumor Size ___ Greatest dimension of largest invasive focus >1 mm: at least 11 mm . Histologic Type ___ Invasive carcinoma of no special type (ductal) . Histologic Grade (Efrain Histologic Score) Glandular (Acinar)/Tubular Differentiation ___ Score 2 (10% to 75% of tumor area forming glandular/[place] [address] PATHOLOGY RPT PROCEDURE Name: DIANA BRISENO Room: [facility]#: [id number] Admission: 12/21/19 Date of : 41 Discharge: Report #: [id number] Path Case #: [id number] structures) . Nuclear Pleomorphism ___ Score 2 (cells larger than normal with open vesicular nuclei, visible nucleoli, and moderate variability in both size and shape) . Mitotic Rate ___ Score 1 . Overall Grade ___ Grade 1 (scores of 3, 4, or 5) . Ductal Carcinoma In Situ (DCIS) ___ Present . Architectural Patterns ___ Cribriform . Nuclear Grade ___ Grade II (intermediate) . Necrosis ___ Present, focal (small foci or single cell necrosis) . Lymphovascular Invasion ___ Not identified . Microcalcifications ___ Present in invasive carcinoma ___ Present in non-neoplastic tissue including medial calcification of blood vessels ___ Other: present in lobular carcinoma in-situ. . . B. Surgical Pathology Cancer Case Summary . Procedure ___ Other: Image-guided core biopsy . Specimen Laterality ___ Right . Tumor Site ___ Clock position: 11 o'clock ___ Distance from nipple: 4 cm . Tumor Size ___ Greatest dimension of largest invasive focus >1 mm: at least 9 [place] [address] PATHOLOGY RPT PROCEDURE Name: DIANA BRISENO Room: [facility]#: [id number] Admission: 12/21/19 Date of : 41 Discharge: Report #: [id number] Path Case #: [id number] . Histologic Type ___ Invasive carcinoma of no special type (ductal) . Histologic Grade (Efrain Histologic Score) Glandular (Acinar)/Tubular Differentiation ___ Score 1 (>75% of tumor area forming glandular/tubular structures) . Nuclear Pleomorphism ___ Score 2 (cells larger than normal with open vesicular nuclei, visible nucleoli, and moderate variability in both size and shape) . Mitotic Rate ___ Score 1 . Overall Grade ___ Grade 1 (scores of 3, 4, or 5) . Ductal Carcinoma In Situ (DCIS) ___ Present . Architectural Patterns ___ Cribriform . Nuclear Grade ___ Grade I (low) . Necrosis ___ Not identified . Lymphovascular Invasion ___ Not identified . Microcalcifications ___ Present in invasive carcinoma . Ancillary Studies Biomarker Studies ___ Pending on B3 MBR 12/26/2019 1502 Local . 02 Comment: In specimen A, the tumor invades as ducts and also in many areas in an "Bermudian file" fashion reminiscent of lobular carcinoma and scattered lobular carcinoma in situ is also seen. Ductal carcinoma in situ is present within the confines of the invasive tumor (A1). A panel of properly controlled immunohistochemical studies performed on A1 to classify the tumor as well as to compare to that seen [place] [address] PATHOLOGY RPT PROCEDURE Name: DIANA BRISENO Room: [facility] Jannet#: [id number] Admission: 12/21/19 Date of : 41 Discharge: Report #: [id number] Path Case #: [id number] the neoplastic cells to have the following results: . E-cadherin - strong positive; negative in lobular carcinoma in situ Keratin SELIN - strong positive High molecular weight keratin - membranous positive; cytoplasmic positive in lobular carcinoma in situ . The tumor in specimen B infiltrates throughout as ductal structures and is also associated with DCIS within the confines of the invasive neoplasm. Properly controlled immunohistochemical studies performed on B2 show the neoplastic cells to have the following characteristics: . E-cadherin - strong positive High molecular weight keratin - strong cytoplasmic positive . Approximately 60% of the submitted tissues of specimen A are involved by invasive neoplasm and approximately 75% of the submitted tissues of specimen B are involved by invasive neoplasm. The 2 neoplasms show some differing histologic appearances and the neoplastic cells stain differently with high molecular weight keratin supporting these to be 2 separate neoplasms. Breast tumor profile studies are pending on both A3 and B3 and will be the subjects of addendum reports. Specimens A and B reviewed with Dr. Shannan Sibley who agrees with the diagnosis. Bernadette (acting [facility] breast navigator) notified at approximately 14:30 on 12/25/2019. . (MARC:jorge/elicia; 12/26/2019) . 02 Addendum: . Special studies report received from [facility], [address] [place] [address], [address], [place], [address], on case [id number], labeled with their number [id number], dated 12/27/2019. . Breast/Prognostic Marker Analysis . Specimen Site: Lt Breast, 1:00, 4 Cm FN Biopsy, Bilateral Breast Nodules Specimen ID #: [id number] . ER (Estrogen Receptor) Present/Positive Percent: 95.00% Analysis: Manual Comments: Staining intensity: Strong . AL (Progesterone Receptor) Present/Positive Percent: 95.00% Analysis: Manual Comments: Staining intensity: [place] [address] PATHOLOGY RPT PROCEDURE Name: DIANA BRISENO Room: [facility]#: [id number] Admission: 12/21/19 Date of : 41 Discharge: Report #: [id number] Path Case #: [id number] . HER2 Not Over-Expressed Score: 1+ Analysis: Manual . Ki-67 Low Proliferation Percent: 5.00% Analysis: Manual . . Specimen Site: Rt Breast, 11:00, 4 Cm FN, Biopsy, Bilateral Breast Nodules Specimen ID #: [id number] . ER (Estrogen Receptor) Present/Positive Percent: 95.00% Analysis: Manual Comments: Staining intensity: Strong . AL (Progesterone Receptor) Present/Positive Percent: 80.00% Analysis: Manual Comments: Staining intensity: Weak To Strong . HER2 Not Over-Expressed Score: 1+ Analysis: Manual . Ki-67 Borderline Proliferation Percent: 11.00% Analysis: Manual . Time to Fixation (Cold Ischemic Time): A: 3 minutes, B: 4 minutes Duration of Fixation: A: 14hours 14 minutes, B: 13 hours 32 minutes Type of Fixative: 10% Neutral Buffered Formalin . Comments: ER/PgR testing at [facility] is performed in compliance with the ASCO/CAP Clinical Practice Guidelines. If the result for ER is less than 1% it is reported as Negative; if the ER result is 1-10% it is reported as Low Positive; if the ER result is greater than 10% it is reported as Positive. If the result for PgR is less than 1% it is reported as Negative; if the PgR result is equal to or greater than 1%, it [place] [address] PATHOLOGY RPT PROCEDURE Name: DIANA BRISENO Room: [facility]#: [id number] Admission: 12/21/19 Date of : 41 Discharge: Report #: [id number] Path Case #: [id number] . REF: Rosa Maria KH, Indira ARIAS, et al: Estrogen and Progesterone Receptor Testing in Breast Cancer. ASCO/CAP Guideline Update. DOI 10.5858/arpa.1824-7015-HY. . Whole slide image capture is performed using [employer] ([employer]) platform. Image analysis, if ordered, is performed using [employer] software. . at [facility]. Michele Monae MD Pathologist . . Methodology The HER2 Receptor protein expression is analyzed using the [place] HER2 rabbit monoclonal antibody (clone 4B5). This assay is used for diagnostic determination of the HER2 protein over-expression in paraffin embedded, formalin fixed breast cancer tissue on the [employer] Benchmark. The specimen is processed using a secondary antibody-HRP conjugate detection system. The membrane staining of the tumor is determined either by manual score or image analysis. This antibody is intended for in vitro diagnostic use. The score is reported as 0, 1+, 2+, or 3+. This test is used for clinical purposes. . A rabbit monoclonal antibody (clone SP1) that recognized the Estrogen Receptor is used to perform immunohistochemistry on routinely fixed (formalin) paraffin embedded tissue on the [employer] Benchmark. The specimen is processed using a secondary antibody-HRP conjugate detection system. The percentage of stained tumor nuclei is determined either manually or by image analysis. This test is intended for in vitro diagnostic use. This test is used for clinical purposes. . A rabbit monoclonal antibody (clone 1E2) that recognized the Progesterone Receptor is used to perform immunohistochemistry on routinely fixed (formalin) paraffin embedded tissue on the [employer] Benchmark. The specimen is processed using a secondary antibody-HRP conjugate detection system. The percentage of stained tumor nuclei is determined either manually or by image analysis. This test is intended for in vitro diagnostic use. This test is used for clinical purposes. . A rabbit monoclonal antibody (clone 30-9) that recognized Ki67 is used to perform immunohistochemistry on routinely fixed (formalin) paraffin embedded tissue on the [employer] Benchmark. The specimen is processed using a secondary antibody-HRP conjugate detection system. The percentage of stained tumor nuclei is determined either manually or by image analysis. This test is intended for in vitro diagnostic use. This test is [place] [address] PATHOLOGY RPT PROCEDURE Name: DIANA BRISENO [id number] Admission: 12/21/19 Date of : 41 Discharge: Report #: [id number] Path Case #: [id number] . Intended Use: This antibody is intended for in vitro diagnostic (IVD) use. HER2 (4B5) is a rabbit monoclonal antibody intended for the semi-quantitative detection of HER2 antigen in sections of formalin-fixed, paraffin embedded normal and neoplastic tissue. . This antibody is intended for in vitro diagnostic (IVD) use. Estrogen Receptor (ER) (SP1) is a rabbit monoclonal antibody (IgG) that is intended for the qualitative detection of estrogen receptor (ER) antigen in sections of formalin-fixed, paraffin-embedded tissue. ER is a rabbit monoclonal antibody that recognizes human estrogen receptor alpha. . This antibody is intended for in vitro diagnostic (IVD) use. Progesterone Receptor (AL) (1E2) is a rabbit monoclonal antibody (IgG) that is intended for the qualitative detection of progesterone receptor (AL) antigen in sections of formalin fixed, paraffin embedded tissue. AL is a rabbit monoclonal antibody that recognizes the A and B forms of the human progesterone receptor. . This antibody is intended for in vitro diagnostic (IVD) use. Ki-67 (30-9) is a rabbit monoclonal antibody (IgG) directed against C-terminal portion of Ki-67 antigen. Staining for Ki-67 can be used to aid in assessing the proliferative activity of normal and neoplastic tissue. Ki-67 is a nuclear protein expressed in proliferating cells. During the cell cycle, the Ki-67 antigen is present in the G1, S, G2 and M phase but is absent in the G0 (quiescent phase). . . Disclaimer: This Test was performed by [facility] at [address], [address]. . [facility] is a business unit of [employer] a wholly-owned subsidiary of [employer]. . This assay has not been validated on decalcified tissues. Results should be interpreted with caution if this specimen was decalcified given the likelihood of false negativity on decalcified specimens. . Any image(s) that accompany this report is/are a automotive sales representative image(s) only and should not be used to render a diagnosis. . This interpretation is contingent on the specimen and the clinical information received. . For any special tests/stains performed, known positive cells or tissues are tested with each marker and examined to [place] [address] PATHOLOGY RPT PROCEDURE Name: DIANA BRISENO Room: [facility]#: [id number] Admission: 12/21/19 Date of : 41 Discharge: Report #: [id number] Path Case #: [id number] and negative internal controls, if present, react appropriately. . This analysis is an adjunct to the evaluation of the referring physician and does not represent a final diagnosis. . The immunohistochemistry tests performed at [facility]. were validated on tissue fixed in 10% neutral buffered formalin. The performance characteristics of the tests performed on tissue processed in other fixatives is not known. . HER2 testing at [facility], [employer] is performed in compliance with the 2018 updated ASCO/CAP Clinical Practice Guideline Focused Update. If the result is EQUIVOCAL (2+), it must be confirmed by an alternative assay such as FISH or Dual LUTHER. REF: Joe ORDONEZ, JUANA Jacobson et al: Human Epidermal Growth Factor Receptor 2 Testing in Breast Cancer: ASCO/CAP Clinical Practice Guideline Focused Update. J Clin Oncol 36:9230-5733, 2018. . HER2 and ER/AL ASCO/CAP guidelines require fixation in neutral buffered formalin for a minimum of 6 and a maximum of 72 hours. Fixation times less than 6 hours may not adequately preserve cell proteins. Fixation times longer than 72 hours may cause excess cross-linking of proteins reducing the antigen available for staining. Either scenario can cause reduced staining; hence false negative results are possible and should be considered for these situations if the HER2 IHC score is less than 3+ or ER or AL is negative (no staining or <1% positive). It is recommended that specimens fixed longer than 72 hours with HER2 IHC scores less than 3+ be confirmed by HER2 FISH or Dual LUTHER. The time from biopsy/excision to fixation in formalin (cold ischemic time) must be less than 1 hour. Time to fixation (cold ischemic time) greater than 1 hour should be interpreted with caution. HER2 testing, mainly HER2 by FISH, is particularly vulnerable since excessive cold ischemic time results in preferential loss of HER2 probe signals that may lead to false negative results. . SCORE STAINING PATTERN IN TUMOR CELLS INTERPRETATION RESULTS 0 No staining observed or incomplete, faint membrane staining in less than or equal to 10% of tumor cells. Negative 1+ Incomplete, faint membrane staining in greater than 10% of tumor cells. Negative 2+ Weak to moderate complete membrane staining observed in greater than 10% of tumor cells. Equivocal* *Must be confirmed by alternative assay (IHC/FISH/Dual LUTHER) 3+ Intense, complete membrane staining in greater than 10% [place] [address] PATHOLOGY RPT PROCEDURE Name: DIANA BRISENO Room: [facility]#: [id number] Admission: 12/21/19 Date of : 41 Discharge: Report #: [id number] Path Case #: [id number] cells. Positive . A complete copy of the report is on file. . Professional and Technical services performed by [facility]. at [address] [place] [address]. . (MARC:deepak 12/28/2019) . PABLOJ/12/28/2019 Addendum Electronically Signed by Cliff Merida MD, Pathologist . 02 Electronically signed: . Cliff Merida MD, Pathologist NPI- [id number] . 01 Gross description: . A. The specimen is received in formalin, labeled "Diana Briseno, left breast 1:00 4 cm from nipple". Received are multiple needle cores of fibrofatty tissue measuring 2.5 x 1.4 x 0.3 cm in aggregate dimensions. The specimen is submitted entirely in cassettes A1 through A3. The cold ischemic time is 3 minutes. The total formalin fixation time is 14 hours and 14 minutes. . B. The specimen is received in formalin, labeled "Diana Briseno, right breast 11:00 4 cm from nipple". Received are multiple needle cores of fibrofatty tissue measuring 2.4 x 2.4 x 0.5 cm in aggregate dimensions. The specimen is submitted entirely in cassettes B1 through B3. The cold ischemic time is 4 minutes. The total formalin fixation time is 13 hours and 32 minutes. ([facility]; 12/21/2019) QAC/QAC 12/21/2019 1728 Local . 02 Pathologist provided ICD-10: C50.912, D05.12, C50.911 . 02 CPT . 237999, 360927, A89268, F72460 Specimen Comment: A courtesy copy of this report has been sent to [phone], [phone] Specimen Comment: [phone], Specimen Comment: Report sent to ,DR COKER / DR SANCHEZ Performed at: [address], [place] [id number] MD Chintan Alexandra MD Phone: [phone] Performed at: 02 [place] [address] PATHOLOGY RPT PROCEDURE Name: DIANA BRISENO Room: [facility] UriKristi#: [id number] Admission: 12/21/19 Date of : 41 Discharge: Report #: [id number] Path Case #: [id number] [address] [place] [id number] MD Cliff Merida MD Phone: [phone]
== END | disposition home or self-care (01) ==
LOC: M.ULTRA 08:02
PROVIDERS: ATTEND Family Medicine
DX: C50.911 Malignant neoplasm of unspecified site of right female breast (principal); C50.912 Malignant neoplasm of unspecified site of left female breast; R92.1 Mammographic calcification found on diagnostic imaging of breast; Z98.890 Other specified postprocedural states; Z79.899 Other long term (current) drug therapy; Z79.01 Long term (current) use of anticoagulants

== ENCOUNTER → 2020-01-04 | Outpatient (CLI) | payer OTHER ==
[2020-01-04 11:11] LABS: CREATININE 1.4 mg/dL (0.6-1.3)
== END ==
LOC: M.MRI 01-01 12:14 → M.LAB 01-08 10:30 → M.MRI 01-08 11:30
PROVIDERS: ATTEND Surgery
DX: C50.919 Malignant neoplasm of unspecified site of unspecified female breast (principal)

== ENCOUNTER → 2020-01-08 | Outpatient (CLI) | payer OTHER | LOC: M.MRI 11:08 | PROVIDERS: ATTEND Surgery | DX: C50.112 Malignant neoplasm of central portion of left female breast (principal); D35.2 Benign neoplasm of pituitary gland; N63.22 Unspecified lump in the left breast, upper inner quadrant; N64.89 Other specified disorders of breast ==

== ENCOUNTER → 2020-02-19 | Outpatient (CLI) | payer OTHER ==
--- NOTE | 2020-02-19 17:32 | 2DMMODE ---
[place] [address] 2 D/M-MODE ECHOCARDIOGRAM Name: DIANA BRISENO Room: [facility]#: [id number] Admission: 02/19/20 Attend Phys: Delia Kiran Discharge: Date of : 41 Date of Service: 02/19/20 1732 Report #: [id number] THIS REPORT FOR: cc: Jessenia Muniz,Jessenia Stiles,Filipe Grewal MD [facility] ~ APPROVED REPORT Study performed: 02/19/2020 12:38:37 EXAM: Comprehensive 2D, Doppler, and color-flow Echocardiogram Patient Location: Out-Patient BSA: 1.84 HR: 68 bpm BP: 125/80 mmHg Other Information Study Quality: Good Indications CAD Hx. of aortic root dissection 2D Dimensions IVSd: 10.84 (7-11mm) LVOT Diam: 19.63 (18-24mm) LVDd: 43.57 mm PWd: 10.58 (7-11mm) Ascending Ao: 29.55 (22-36mm) LVDs: 26.09 (25-40mm) Aortic Root: 31.46 mm Volumes Left Atrial Volume (Systole) LA ESV Index: 15.50 mL/m2 Aortic Valve AoV Peak Charles.: 1.53 m/s AO Peak Gr.: 9.34 mmHg LVOT Max P.05 mmHg AO Mean Gr.: 5.04 mmHg LVOT Mean P.98 mmHg LVOT Max V: 0.72 m/s AO V2 VTI: 30.41 cm LVOT Mean V: 0.45 m/s ANNIE (VTI): 1.83 cm2 LVOT V1 VTI: 18.34 cm AI Pecos: 3.14 m/s2 AI PHT: 461.22 [place] [address] 2 D/M-MODE ECHOCARDIOGRAM Name: DIANA BRISENO Room: [facility]#: [id number] Admission: 02/19/20 Attend Phys: Delia Kiran Discharge: Date of : 41 Date of Service: 02/19/20 1732 Report #: [id number] Mitral Valve E/A Ratio: 0.69 MV Decel. Time: 203.05 ms MV E Max Charles.: 0.56 m/s MV PHT: 58.88 ms MVA (PHT): 3.74 cm2 TDI E/Lateral E': 7.00 E/Medial E': 11.20 Medial E' Charles.: 0.05 m/s Lateral E' Charles.: 0.08 m/s Pulmonary Valve PV Peak Charles.: 0.84 m/s PV Peak Gr.: 2.82 mmHg Tricuspid Valve RAP Estimate: 5.00 mmHg TR Peak Gr.: 19.15 mmHg RVSP: 24.15 mmHg PA Pressure: 24.15 mmHg Left Ventricle The left ventricle is normal size. There is normal LV segmental wall motion. There is normal left ventricular wall thickness. Left ventricular systolic function is mildly decreased. LVEF is 45%. Grade I - abnormal relaxation pattern. Right Ventricle The right ventricle is normal size. The right ventricular systolic function is normal. Atria The left atrium size is normal. The right atrium size is normal. Aortic Valve Mild aortic valve sclerosis. Moderate aortic regurgitation. There is no aortic valvular stenosis. Mitral Valve Mild mitral annular calcification. Mild mitral regurgitation. No evidence of mitral valve stenosis. Tricuspid Valve The tricuspid valve is normal in structure. [place] [address] 2 D/M-MODE ECHOCARDIOGRAM Name: DIANA BRISENO Room: [facility]#: [id number] Admission: 02/19/20 Attend Phys: Delia Kiran Discharge: Date of : 41 Date of Service: 02/19/20 1732 Report #: [id number] Pulmonic Valve The pulmonary valve is normal in structure. Mild pulmonic regurgitation. Great Vessels The aortic root is normal in size. IVC is normal in size and collapses >50% with inspiration. Pericardium There is no pericardial effusion. <Conclusion> The left ventricle is normal size. There is normal left ventricular wall thickness. Left ventricular systolic function is mildly decreased. LVEF is 45%. Grade I - abnormal relaxation pattern. The right ventricle is normal size. The left atrium size is normal. Mild aortic valve sclerosis. Moderate aortic regurgitation. There is no aortic valvular stenosis. Mild mitral annular calcification. Mild mitral regurgitation. No evidence of mitral valve stenosis. The tricuspid valve is normal in structure. Mild tricuspid regurgitation. IVC is normal in size and collapses >50% with inspiration. There is no pericardial effusion. There is normal LV segmental wall motion. <ELECTRONICALLY SIGNED> By: Filipe Molina MD, FACC 02/19/201731 31 31 Filipe Molina MD, FACC /INF
--- NOTE | 2020-02-20 12:46 | CARDNUC ---
[place] [address] CARDIAC NUCLEAR IMAGING REPORT Name: DIANA BRISENO Room: [facility]#: [id number] Admission: 02/19/20 Attend Phys: Delia Kiran Discharge: Date of : 41 Date of Service: 02/20/20 1246 Report #: [id number] THIS REPORT FOR: cc: Jessenia Muniz Linda J. DO Biggs, F. Douglas MD [facility] ~ APPROVED REPORT Imaging Protocol: Rest Tc-99m/Stress Tc-99m 1 day Study performed: 02/19/2020 13:30:00 Indication: Pre-Op clearance, CAD, HTN. Patient Location: Out-Patient Stress Tech: Bernadette Corbin Stress Nurse: Cassidy Caceres RN NM Tech:RAFAEL Riddle Ht: 5 ft 5 in Wt: 174 lbs BSA: 1.86 m2 BMI: 28.95 Medical History Medical History: Aortic Root Replacement, HX CVA, Aortic Aneurysm, poor historian, confusion/forgetful, DM II, HTN, HLD, CAD s/p OR, CAD s/p stent, Weakness, unstable gait, HX AFib, Secondhand smoke exposure. Medications: Apixaban, Atorvastatin, Eliquis, unconfirmed meds include Metoprolol, Losartan. Patient poor historian. Allergies: No known drug allergies Cardiac Risk Factors: Age, DM II, FHX of CAD, HTN, Hyperlipidemia, HX AFib, Aortic Root Replacement/Aortic aneurysm. Previous Cardiac Procedures: Myocardial infarction, PCI, Aortic Root replacement/Aortic aneurysm. Pretest Chest Pain Characteristics: No chest pain Exercise History: Sedentary Physical Disabilities: Weakness, unstable gait, wheelchair, confusion/forgetful. Meds Held (24 hrs): Unknown, patient poor historian. Resting Data Rest SPECT myocardial perfusion imaging was performed in supine position 30 minutes following the intravenous injection of 10.9 mCi of Tc-99m Sestamibi. Time of rest injection: 1355 Date: 02/19/2020 The images were gated to evaluate regional [place] [address] CARDIAC NUCLEAR IMAGING REPORT Name: SUZANNADIANA BARAHONA Room: [facility]#: [id number] Admission: 02/19/20 Attend Phys: Delia Kiran Discharge: Date of : 41 Date of Service: 02/20/20 1246 Report #: [id number] left ventricular ejection fraction. Administration Route: IV Administration Site: Right Hand Pharmacologic Stress Pharmacologic stress test was performed by injecting Regadenoson 0.4 mg IV push over 10-15 seconds immediately followed by the intravenous injection of 33.5 mCi of Tc-99m Sestamibi. Time of stress injection: 1600 Date: 02/19/2020 Administration Route: IV Administration Site: Right Hand Gated Stress SPECT was performed 40 minutes after stress injection. The images were gated to evaluate regional wall motion and calculate left ventricular ejection fraction. Stress only was performed in the Supine position. Stress Test Details Stress Test: Pharmacologic stress testing performed using 0.4 mg of regadenoson per 5 mL given IV over 10 seconds. Reason for pharmacologic stress test: Weakness, unstable gait, wheelchair, Confusion/forgetful.. HR Max Heart Rate (APMHR): 144 bpm Resting HR: 74 bpm Target HR (85% APMHR): 122 bpm Max HR Achieved: 103 bpm % of APMHR: 71 Recovery HR: 88 bpm HR response to stress: Normal HR response to stress BP Resting BP: 127/84 mmHg Max BP: 101/61 mmHg Recovery BP: 132/71 mmHg BP response to stress: Normal blood pressure response to stress. ECG Resting ECG: Sinus Rhythm old anteroseptal myocardial infarction Stress ECG: Sinus Rhythm and as above ST Change: None Arrhythmia: None Recovery ECG: Sinus Rhythm and as above Recovery ST Change: None Recovery Arrhythmia: APC, [place] [address] CARDIAC NUCLEAR IMAGING REPORT Name: DIANA BRISENO Room: [facility]#: [id number] Admission: 02/19/20 Attend Phys: Delia Kiran Discharge: Date of : 41 Date of Service: 02/20/20 1246 Report #: [id number] Clinical Reason for Termination: Completed protocol Stress Symptoms: Dyspnea, Lightheaded, Nausea. Exercise duration: 00 min 00 sec Exercise capacity: 1.00 METs Nurse Comments A 74 year old female presented for a sitting Lexiscan. Test well tolerated. Recovery unremarkable. Patient escorted via wheelchair to Nuclear Medicine for imaging. Patient was stable and stated she felt good at that time. Stress ECG Conclusion ECG: Non-ischemic Normal hemodynamic response to pharmacologic stress. Non-diagnostic pharmacologic EKG stress due to failure to attain target HR. Study Quality Study: Good Artifact: Mild Diaphragmatic artifact Lung Uptake: Normal Study Data At rest, the left ventricular ejection fraction was 51%.. Post stress, the left ventricular ejection was 53%.. SSS: 0 SRS: 0 SDS: 0 TID = 1.03. Perfusion The resting study demonstrated a very small very mild apical defect and a small mild inferior defect. The post-rest images demonstrate a very small very mild apical defect and a very small very mild inferior defect. There were no reversible defects seen there is no evidence of myocardial ischemia. The fixed defect seen are due to diaphragmatic attenuation artifact and apical thinning. Images were reviewed using ShepHertz. Wall Motion Normal left ventricular wall motion. Nuclear Conclusion ECG Findings: non-diagnostic Clinical Findings: [place] [address] CARDIAC NUCLEAR IMAGING REPORT Name: DIANA BRISENO [id number] Admission: 02/19/20 Attend Phys: Delia Kiran Discharge: Date of : 41 Date of Service: 02/20/20 1246 Report #: [id number] Nuclear Findings: negative for ischemia Exercise Capacity: not assessed Left Ventricular Function: normal Risk Study: low Normal study. No scintigraphic evidence for myocardial ischemia or scar. <Conclusion> ECG: Non-ischemic Normal hemodynamic response to pharmacologic stress. Non-diagnostic pharmacologic EKG stress due to failure to attain target HR. <ELECTRONICALLY SIGNED> By: Cata Vinson MD, FACC 02/20/20 1246 45 45 Cata Vinson MD, FACC /INF
== END ==
LOC: M.CRD 02-05 09:01
PROVIDERS: ATTEND Internal Medicine Cardiovascular Disease
DX: I08.8 Other rheumatic multiple valve diseases (principal); I25.10 Atherosclerotic heart disease of native coronary artery without angina pectoris

== ENCOUNTER → 2020-03-05 | Outpatient (CLI) | payer OTHER | LOC: M.ULTRA 09:22 | PROVIDERS: ATTEND Surgery | DX: C50.212 Malignant neoplasm of upper-inner quadrant of left female breast (principal); C50.211 Malignant neoplasm of upper-inner quadrant of right female breast; Z17.1 Estrogen receptor negative status [ER-] ==

== ENCOUNTER → 2020-03-08 | Outpatient (CLI) | payer OTHER | LOC: M.MRI 10:45 | PROVIDERS: ATTEND Family Medicine | DX: I67.82 Cerebral ischemia (principal); R41.3 Other amnesia; R42 Dizziness and giddiness ==

== ENCOUNTER → 2020-03-19 | Outpatient (CLI) | payer OTHER ==
[~2020-03-19] MED LIST changes: +JANUVIA100 MG PO; +LIPITOR40 MG PO
== END ==
LOC: M.LAB 11:25
PROVIDERS: ATTEND Surgery
DX: Z01.812 Encounter for preprocedural laboratory examination (principal); Z20.828 Contact with and (suspected) exposure to other viral communicable diseases

== ENCOUNTER → 2020-03-20 | Outpatient (CLI) | payer OTHER | LOC: M.MRI 10:59 | PROVIDERS: ATTEND Family Medicine | DX: I65.1 Occlusion and stenosis of basilar artery (principal); R41.3 Other amnesia ==

== ENCOUNTER → 2020-03-26 | Day surgery (SDC) | payer OTHER ==
[~2020-03-26] MED LIST changes: +TRAMADOL 50 MG50 MG PO
[2020-03-26 09:27] LABS: HEMATOCRIT 42.5 % (37.0-47.0); HEMOGLOBIN 14.6 gm/dL (12.0-15.0); MCH 29.4 pg (26.0-34.0); MCHC 34.3 g/dL (28.0-37.0); MCV 85.5 fL (80.0-100.0); MPV 7.9 fl. (7.2-11.1); RBC 4.97 mil/uL (4.20-5.00); RDW-CV 14.4 % (10.5-14.5)
[2020-03-26 09:38] LABS: CREATININE 1.2 mg/dL (0.6-1.3); POTASSIUM 3.9 mmol/L (3.5-5.1)
--- NOTE | 2020-03-26 10:17 | EKG ---
[place] [address] ELECTROCARDIOGRAM REPORT Name: DIANA BRISENO Room: [facility]#: [id number] Admission: 03/26/20 Attend Phys: Zuleyma Kline, Discharge: Date of : 41 Date of Service: 03/26/20923 Report #: [id number] THIS REPORT FOR: //name// [facility] Test Date: 2020-03-26 Test Time: 09:24:08 Pat Name: DIANA BRISENO Department: Room: Gender: F Bull Ladle Tender: : 1945 Requested By: Zuleyma Kline Order Number: [id number] Nita MD: Filipe Molina Measurements Intervals [place] Rate: 66 P: 9 [place]: 186 QRS: -19 QRSD: 107 T: 20 QT: 447 QTc: 469 Interpretive Statements Sinus rhythm Anterior infarct, old Compared to ECG 09/02/2017 10:26:36 Myocardial infarct finding is suggested Left ventricular hypertrophy no longer present Electronically Signed On 03-26-2020 10:17:21 PICKLING OPERATOR by Filipe Molina [email or web address] <ELECTRONICALLY SIGNED> By: Filipe Molina MD, [facility] 03/26/20 1017 3 Filipe Molina MD, [facility] /EPI
--- NOTE | 2020-03-26 15:33 | OP ---
[address] [address] OPERATIVE REPORT Name: DIANA BRISENO Room: [facility]#: [id number] Admission: 03/26/20 Attend Phys: Zuleyma Kline DO Discharge: Date of : 41 Report #: [id number] THIS REPORT FOR: cc: Jessenia Muniz Linda J. DO ~ Zuleyma Kline DO DATE OF SERVICE: 03/26/2020 PREOPERATIVE DIAGNOSIS: Bilateral breast cancer. POSTOPERATIVE DIAGNOSIS: Bilateral breast cancer. FINDINGS: Bilateral RFID tags, each at about the 2 o'clock position. Bilateral nuclear medicine injections. Uptake on the right nipple was 3050. Uptake on the superficial sentinel lymph node on the right was 350. Uptake on the left nipple 8008. Uptake on the left deep sentinel lymph node 36. SURGEON: Zuleyma Kline DO COSURGEON: Akash Carlson, PGY-1 DIRECTOR WRITING: JEREMY Johnson and JEREMY Zuñiga PROCEDURE PERFORMED: Bilateral RFID tag-guided lumpectomies and bilateral sentinel lymph node dissections. ANESTHESIA: LMA and local. ESTIMATED BLOOD LOSS: 20 mL. DRAINS: None. SPECIMENS: Right lumpectomy, right sentinel lymph node, left lumpectomy, left posterior margin and left sentinel lymph node. COMPLICATIONS: None. CONDITION: Stable. DISPOSITION: PACU. HISTORY OF PRESENT ILLNESS: The patient is a very pleasant 74-year-old female who presented to me originally with a change in her mammogram. She had undergone bilateral ultrasound-guided biopsies, both of which returned with cancer. Unfortunately, the patient was on a blood thinner and had not stopped [address] [address] OPERATIVE REPORT Name: SUZANNADIANA Ana Maria Room: [facility]#: [id number] Admission: 03/26/20 Attend Phys: Zuleyma Kline DO Discharge: Date of : 41 Report #: [id number] her blood thinners in the prebiopsy period and she did develop very large bilateral hematomas. These were given some time to heal and did reabsorb on their own. In the meantime, she was seen by Oncology and Radiation Oncology and underwent bilateral breast MRI. She was also seen by her managing principal and was cleared for surgery and to be off of her blood thinners. Prior to surgery, she returned to Radiology where she underwent placement of bilateral RFID tags next to her previously deployed clips. DESCRIPTION OF PROCEDURE: On the day of surgery, she initially presented and was taken to Nuclear Medicine and then received bilateral nuclear medicine injections. She was then seen in preop where she underwent informed consent. She was then taken to the OR where she was laid supine on the operating room table. SCDs were placed on bilateral lower extremities. Ancef was given in the perioperative period. General LMA anesthesia was induced by Anesthesia without difficulty. 2.5 mL of isosulfan blue dye were injected in the periareolar area bilaterally. Bilateral breasts and axilla were then prepped and draped in the standard sterile fashion. Timeout was performed to verify patient and procedure. We began on the left. EQAL probe was used to identify the area of the RFID tag. This was marked. 10 mL of 0.5% Marcaine were injected in the area of our planned incision. Curvilinear incision was made with #15 blade. Cautery was used for hemostasis. Then, using the tag for guidance, a lumpectomy specimen was formed. Specimen was marked in the superior and lateral direction. The area of the mass in this breast was palpable and I was somewhat concerned that we were close on the posterior margin. The specimen itself was sent off to Radiology to undergo mammography. While that was away, we then took an additional posterior margin. This was also marked in the superior and lateral direction. Radiology then returned a phone call indicating that we had the clip and the tag and that our margins looked good. I do remain somewhat concerned about the superior margin as we were very close to the skin. Neoprobe was then brought onto the field and the left nipple was interrogated. Our highest area of uptake was 8008. The Neoprobe was then used to interrogate the axilla. We did not have significant uptake in the axilla. The sternum, the clavicle and the inframammary folds were all investigated and we had about the same uptake. The area of our lumpectomy specimen was just superior to the axilla, so we dissected down through our cavity into the axilla. The axillary fat pad was easily visualized. Uptake in this area remained about the same anywhere from 10 to 20. After exploring for some time in the axilla, I returned my attention back to the area of our lumpectomy specimen. Blue dye could clearly be seen coursing towards the axilla and we did have an area of uptake of approximately 40-50. Unfortunately, this entire area appeared to be involved in what was most likely the patient's previous hematoma. At that point, I was uncertain whether either the blue dye or the nuclear medicine injection was going to course correctly into the axilla. I continued to dissect through the area until an area of blue dye uptake and mild uptake on the Neoprobe indicated possible sentinel lymph node. This area was dissected free and was handed off for [address] [address] OPERATIVE REPORT Name: DIANA BRISENO Room: [facility]#: [id number] Admission: 03/26/20 Attend Phys: Zuleyma Kline DO Discharge: Date of : 41 Report #: [id number] permanent pathology. The cavity was then copiously irrigated and hemostasis was assured. FloSeal was then introduced into the cavity. The wound was then closed in a layered fashion using deep and superficial stitches of 3-0 Vicryl in inverted interrupted fashion. Skin wound was closed with running 4-0 Monocryl. We then turned our attention to the right breast. Hologic probe was again used to identify the area of the RFID tag and this was around the 2 o'clock position. 10 mL of 0.5% Marcaine were injected in the area of the planned incision. Incision was made with #15 blade. Cautery was used for hemostasis. Hologic probe was used to create a lumpectomy. Specimen was marked in the superior and lateral direction, was sent to Radiology, again mammography confirmed that we had both clips and that it appeared that we had good margins. Neoprobe was brought onto the field and our lymph node was identified just inferior to the cavity. We had excellent uptake here. The uptake on the right nipple was 3015. After very minimal dissection down into the axillary pad, a very large hot blue node was identified. This was elevated using an Allis clamp and this was dissected free from the surrounding tissue. Uptake on the superficial sentinel lymph node was 350. This was then handed off as our right sentinel lymph node. No further uptake was noted in the axilla. This wound was then also copiously irrigated until clear. Hemostasis was assured. FloSeal was introduced. Wound was closed in a layered fashion using deep and superficial stitches of 3-0 Vicryl in inverted interrupted fashion. Skin wound was closed with running 4-0 Monocryl. A total of 30 mL of 0.5% Marcaine were used to anesthetize the wounds. Wounds were then cleansed and covered with Dermabond. The patient was placed in a surgical bra. The patient was then extubated and transported to the recovery room with no further difficulties. Counts were correct x 2 at the conclusion of the case. <ELECTRONICALLY SIGNED> By: Zuleyma Kline DO 03/26/20 1533 1257 1320Chgem Kline DO /nt
--- NOTE | 2020-04-02 17:06 | PATH ---
[address] [address] PATHOLOGY RPT PROCEDURE Name: FADIA BRISENO Room: [facility].#: [id number] Admission: 03/26/20 Date of : 41 Discharge: Report #: [id number] Path Case #: [id number] [facility] Accession Number: [id number] . 01 Material submitted: . PART A: breast - JOSE CONTAINER LEFT BREAST SHORT STITCH SUP LONG STITCH LAT LUMPECTOMY. Modifiers: left PART B: breast - LEFT BREAST POSTERIOR MARGIN SHORT STITCH SUPERIOR LONG LATERAL. Modifiers: left PART C: lymph node - RIGHT BREAST SENTINEL NODE. Modifiers: right PART D: breast - JOSE CONTAINER RIGHT BREAST SHORT STITCH SUP LONG STITCH LAT LUMPECTOMY. Modifiers: right PART E: lymph node - LEFT BREAST SENTINEL NODE. Modifiers: left . 01 Clinical history: . MALIGNANT NEOPLASM UPPER QUAD OF RIGHT AND LEFT BREAST, ESTROGEN RECEPTOR NEGATIVE STATUS . 02 Diagnosis: A. Left breast lumpectomy: - INFILTRATING DUCTAL ADENOCARCINOMA, LOW-GRADE, SPANNING 6 MM, ADJACENT TO PRIOR BIOPSY SITE (INCLUDING LOCALIZATION SEED), WITH INVOLVEMENT OF POSTERIOR MARGIN FOR SPAN OF 4 MM. - DUCTAL CARCINOMA IN SITU (DCIS), NUCLEAR GRADE II, SOLID AND CRIBRIFORM TYPES, SPANNING 2 MM, WITH INVOLVEMENT OF POSTERIOR MARGIN. - LOBULAR CARCINOMA IN SITU (LCIS), LOW-GRADE. SEE COMMENT. . B. Left breast posterior margin: - BREAST TISSUE WITH CHANGES OF PRIOR BIOPSY, LCIS, LOW-GRADE, AND FLORID DUCTAL EPITHELIAL HYPERPLASIA, WITH NO RESIDUAL INFILTRATING TUMOR AND NO DCIS. SEE COMMENT. . C. Right breast sentinel node: - One benign lymph node (0/1). See comment. . D. Right breast lumpectomy: - INFILTRATING DUCTAL ADENOCARCINOMA, LOW-GRADE, SPANNING 4 MM, ADJACENT TO PRIOR BIOPSY SITE (INCLUDING LOCALIZATION SEED), WITH ALL SURGICAL MARGINS FREE OF INVOLVEMENT AND CLOSEST (POSTERIOR) LOCATED 3 MM AWAY. - DCIS, NUCLEAR GRADE I, SOLID TYPE, SPANNING LESS THAN 1 MM, WITH ALL SURGICAL MARGINS FREE OF INVOLVEMENT AND CLOSEST (POSTERIOR) LOCATED 3 MM AWAY. SEE COMMENT. . E. Left breast sentinel node: - Benign fibrofatty tissue with prominent fibrosis, fat necrosis, foreign body type granulomata and stromal hemosiderin deposition, with no definite lymph node identified. [place] [address] PATHOLOGY RPT PROCEDURE Name: FADIA BRISENO Room: [facility]..#: [id number] Admission: 03/26/20 Date of : 41 Discharge: Report #: [id number] Path Case #: [id number] (MARC:jorge; 04/01/2020) . . Surgical Pathology Cancer Case Summary INVASIVE CARCINOMA OF THE BREAST: Resection . Procedure ___ Other: Lumpectomy . Specimen Laterality ___ Left . + Tumor Site + ___ Clock position: 1 o'clock + ___ Distance from nipple: 4 cm, see comment . Tumor Size ___ Greatest dimension of largest invasive focus >1 mm: 11 mm, SEE COMMENT . Histologic Type ___ Invasive carcinoma of no special type (ductal) . Histologic Grade (Efrain Histologic Score) Glandular (Acinar)/Tubular Differentiation ___ Score 2 (10% to 75% of tumor area forming glandular/tubular structures) . Nuclear Pleomorphism ___ Score 1 (nuclei small with little increase in size in comparison with normal breast epithelial cells, regular outlines, uniform nuclear chromatin, little variation in size) . Mitotic Rate ___ Score 1 . Overall Grade ___ Grade 1 (scores of 3, 4, or 5) . + Tumor Focality + ___ Single focus of invasive carcinoma . Ductal Carcinoma In Situ (DCIS) ___ Present + ___ Negative for extensive intraductal component (EIC) . + Size (Extent) of DCIS + Estimated size of DCIS is at least 2 [place] [address] PATHOLOGY RPT PROCEDURE Name: FADIA BRISENO Room: [facility].#: [id number] Admission: 03/26/20 Date of : 41 Discharge: Report #: [id number] Path Case #: [id number] + Architectural Patterns + ___ Cribriform + ___ Solid . + Nuclear Grade + ___ Grade II (intermediate) . + Necrosis + ___ Not identified . + Lobular Carcinoma In Situ (LCIS) + ___ Present . Margins Invasive Carcinoma Margins ___ Uninvolved by invasive carcinoma, SEE COMMENT. Distance from closest margin: ___ Specify: At least 4 mm . + Specify closest margin: Posterior . + Distance from other margins: + ___ Anterior: 6 mm, see comment . DCIS Margins ___ Uninvolved by DCIS Distance from closest margin: ___ Specify: At least 4 mm . Regional Lymph Nodes ___ Uninvolved by tumor cells Total Number of Lymph Nodes Examined: 1 Number of [place] Nodes Examined: 1 . Treatment Effect in the Breast ___ No known presurgical therapy . + Lymphovascular Invasion + ___ Not identified . + Dermal Lymphovascular Invasion + ___ No skin present . . PATHOLOGIC STAGE CLASSIFICATION (PTNM, AJCC 8TH EDITION) Primary Tumor (pT) ___ pT1c:Tumor >10 mm but less than or equal to 20 mm [place] [address] PATHOLOGY RPT PROCEDURE Name: FADIA BRISENO Room: [facility].#: [id number] Admission: 03/26/20 Date of : 41 Discharge: Report #: [id number] Path Case #: [id number] Regional Lymph Nodes (pN) ___ pNX:Regional lymph nodes cannot be assessed . + Additional Pathologic Findings + Specify: Incidental fibroadenoma . + Ancillary Studies . + ___ Breast Biomarker Testing Performed on Previous Biopsy + Testing Performed on A3 . + Estrogen Receptor (ER) + ___ Positive 95% . + Progesterone Receptor (PgR) + ___ Positive 95% . + HER2 (by immunohistochemistry) + ___ Negative (Score 1+) . + ___ Ki-67 percentage of positive nuclei: 5% . + Microcalcifications + ___ Present in invasive carcinoma + ___ Present in non-neoplastic tissue + ___ Other: Medial calcification of blood vessels . . Surgical Pathology Cancer Case Summary INVASIVE CARCINOMA OF THE BREAST: Resection . Procedure ___ Other: Lumpectomy . Specimen Laterality ___ Right . + Tumor Site + ___ Clock position: 11 o'clock + ___ Distance from nipple: 4 cm, see comment . Tumor Size ___ Greatest dimension of largest invasive focus >1 mm: 9 mm, see comment . . Histologic Type ___ Invasive carcinoma of no special type (ductal) . Histologic Grade (Efrain Histologic Score) [place] [address] PATHOLOGY RPT PROCEDURE Name: FADIA BRISENO Room: [facility].#: [id number] Admission: 03/26/20 Date of : 41 Discharge: Report #: [id number] Path Case #: [id number] Glandular (Acinar)/Tubular Differentiation ___ Score 1 (>75% of tumor area forming glandular/tubular structures) . Nuclear Pleomorphism ___ Score 2 (cells larger than normal with open vesicular nuclei, visible nucleoli, and moderate variability in both size and shape) . Mitotic Rate ___ Score 1 . Overall Grade ___ Grade 1 (scores of 3, 4, or 5) . + Tumor Focality + ___ Single focus of invasive carcinoma . Ductal Carcinoma In Situ (DCIS) ___ Present + ___ Negative for extensive intraductal component (EIC) . + Size (Extent) of DCIS + Estimated size of DCIS is less than 1 mm . + Architectural Patterns + ___ Solid . + Nuclear Grade + ___ Grade I (low) . + Necrosis + ___ Not identified . + Lobular Carcinoma In Situ (LCIS) + ___ Not identified . Margins Invasive Carcinoma Margins ___ Uninvolved by invasive carcinoma Distance from closest margin: ___ Specify 3 mm . + Specify closest margin: Posterior . DCIS Margins ___ Uninvolved by DCIS Distance from closest margin: ___ Specify 3 mm . Specify closest margin: [place] [address] PATHOLOGY RPT PROCEDURE Name: FADIA BRISENO Room: [facility]#: [id number] Admission: 03/26/20 Date of : 41 Discharge: Report #: [id number] Path Case #: [id number] . Regional Lymph Nodes ___ Uninvolved by tumor cells Total Number of Lymph Nodes Examined: 1 Number of [place] Nodes Examined: 1 . Treatment Effect in the Breast ___ No known presurgical therapy . + Lymphovascular Invasion + ___ Not identified . + Dermal Lymphovascular Invasion + ___ No skin present . . PATHOLOGIC STAGE CLASSIFICATION (PTNM, AJCC 8TH EDITION) Primary Tumor (pT) ___ pT1b:Tumor >5 mm but less than or equal to 10 mm in greatest dimension . Regional Lymph Nodes Modifier ___ (sn):[place] node evaluated. . Regional Lymph Nodes (pN) ___ pN0:No regional lymph node metastasis identified . + Ancillary Studies + ___ Breast Biomarker Testing Performed on Previous Biopsy + Testing Performed on B3 . + Estrogen Receptor (ER) + ___ Positive 95% . + Progesterone Receptor (PgR) + ___ Positive 80% . + HER2 (by immunohistochemistry) + ___ Negative (Score 1+) . + ___ Ki-67 percentage of positive nuclei: 11% . + Microcalcifications + ___ Present in invasive carcinoma + ___ Present in non-neoplastic tissue . (MARC:jorge; 04/01/2020) MBR 04/02/2020 1620 Local . 02 [place] [address] PATHOLOGY RPT PROCEDURE Name: FADIA BRISENO Room: [facility] Jannet#: [id number] Admission: 03/26/20 Date of : 41 Discharge: Report #: [id number] Path Case #: [id number] Comment: The invasive tumor in the left breast shows identical histologic features to that seen at the prior biopsy in which there is prominent infiltration in an "brazilian file" fashion reminiscent of lobular carcinoma and could be classified as "ductal carcinoma with lobular features". The closest approach to a final margin provided in the synoptic for the left breast tumor is based on an additional at least 4 mm thickness of posterior margin (B) as tumor was seen to frankly involve the posterior margin in specimen A. The next closest approach to a final margin is anterior, located 6 mm away in A6. The tumor site for both the left breast and right breast is based on that provided in the prior biopsies ([id number] A and B). The final tumor size for both the left and right breast provided in the synoptic is based on a longer span for both tumors also seen in the prior biopsies. . Tissue submitted as the "left breast sentinel node" shows vaguely nodular prominent granulomata in association with fat necrosis and fairly scant chronic inflammation, as well as prominent hemosiderin deposition and fibrosis suggesting prior instrumentation. Properly controlled keratin AE1/AE3 performed on C1 and E1 showed no evidence of metastatic tumor. . (MARC:jorge; 04/01/2020) . 02 Electronically signed: . Cliff Merida MD, Pathologist NPI- [id number] . 01 Gross description: . A. Received in formalin labeled "Fadia Briseno, left breast short superior long lateral" is an oriented breast lumpectomy specimen weighing 19 g and measuring 5.1 cm from superior to inferior, 4.5 cm from medial to lateral, and 1.6 cm from anterior to posterior. The specimen is inked as follows: Superior-red, inferior-blue, anterior-green, posterior-black, lateral-orange, medial-yellow. The specimen is serially sectioned from superior to inferior into 12 slices. Within slices 5-10 is a starks-white stellate mass measuring 2.4 x 1.6 x 1.0 cm. The mass is located to the margins as follows: 1.6 cm to superior, 1.7 cm to inferior, diffusely abuts posterior, 0.3 cm to anterior, 0.8 cm to medial, and 1.1 cm to lateral. A localization seed is present within the mass in slice 6. The uninvolved breast tissue is 80% yellow and lobulated and 20% starks-white and fibrous. The specimen is submitted entirely as follows: A1 slice 1, superior margin, perpendicular sections A2-A10 slices 2-10, submitted sequentially A11-A12 slice 11 A13-A14 slice 12, inferior margin, perpendicular sections The specimen is removed from the patient at 1050 and placed in formalin at 1308 on 03/26/2020. The specimen is removed from formalin at 1033 on 03/28/2020. [place] [address] PATHOLOGY RPT PROCEDURE Name: SUZANNAFADIA Rodgers Room: [facility]#: [id number] Admission: 03/26/20 Date of : 41 Discharge: Report #: [id number] Path Case #: [id number] . B. Received in formalin labeled "aFdia Briseno, posterior margin left breast" and further labeled on the requisition as "short stitch superior long lateral" is an oriented breast lumpectomy specimen weighing 8 g and measuring 3.6 cm from superior to inferior, 3.6 cm from medial to lateral, and 1.7 cm from anterior to posterior. The specimen is inked as follows: Superior-red, inferior-blue, anterior-green, posterior-black, lateral-orange, medial-yellow. The specimen is serially sectioned from superior to inferior into 8 slices. The cut surface is 80% yellow and lobulated and 20% starks-white and fibrous with focal firm areas. A mass is not definitively identified. The specimen is submitted entirely as follows: B1 slice 1, superior margin, perpendicular sections B2-B7 slices 2-7, submitted sequentially B8-B9 slice 8, inferior margin, perpendicular sections The specimen is removed from the patient and placed in formalin at 1050 on 03/26/2020. The specimen is removed from formalin at 1033 on 03/28/2020. . C. Received in formalin labeled "Fadia Briseno, right breast sentinel node" is a pink-starks lymph node measuring 2.1 x 1.4 x 1.0 cm. The specimen is serially sectioned and submitted entirely in cassette C1. . D. Received in formalin labeled "Fadia Briseno, right breast short superior long lateral" is an oriented breast lumpectomy specimen weighing 31 g and measuring 6.1 cm from superior to inferior, 6.1 cm from medial to lateral, and 1.7 cm from anterior to posterior. The specimen is inked as follows: Superior-red, inferior-blue, anterior-green, posterior-black, lateral-orange, medial-yellow. The specimen is serially sectioned from medial to lateral into 14 slices. Present within slices 8-12 is a starks-white stellate mass measuring 2.0 x 1.8 x 0.9 cm. The mass is located to the margins as follows: 3.5 cm to medial, 0.5 cm to lateral, 0.4 cm to anterior, 0.4 cm to posterior, 1.7 cm to superior, and 1.3 cm to inferior. A localization seed is located within the mass in slice 9. The uninvolved breast tissue is 90% yellow and lobulated and 10% starks-white and fibrous. Forensic Locksmith sections of the specimen are submitted as follows: D1 labor service representative slice 1, medial margin, perpendicular sections D2-D3 entire slice 7 D4-D5 entire slice 8 D6-D7 entire slice 9 D8-D9 entire slice 10 D10-D11 entire slice 11 D12-D13 entire slice 12 D14 entire slice 13 D15 entire slice 14, lateral margin, perpendicular sections The specimen is removed from the patient at 1208 and placed in formalin at 1308 on 03/26/2020. The specimen is removed from formalin at 1033 on 03/28/2020. [place] [address] PATHOLOGY RPT PROCEDURE Name: FADIA BRISENO Room: [facility]#: [id number] Admission: 03/26/20 Date of : 41 Discharge: Report #: [id number] Path Case #: [id number] E. Received in formalin labeled "Fadia Briseno, left breast sentinel lymph node" is a pink-starks possible lymph node measuring 1.8 x 1.5 x 1.1 cm. The specimen is serially sectioned and submitted entirely in cassette E1. [place] [facility] [place] [facility] 04/01/2020 1732 Local . 02 Pathologist provided ICD-10: C50.912, D05.12 . 02 CPT . 178222, 146222, 574289, 802253, 383801, Q02874 Specimen Comment: A courtesy copy of this report has been sent to [phone], [phone] Specimen Comment: [id number] Specimen Comment: Report sent to / DR SANCHEZ Performed at: 01 [facility] [address], [place], [place] [id number] MD Kaveh Osborne MD Phone: [phone] Performed at: 02 [facility] [address] [place], [place] [id number] MD Cliff Merida MD Phone: [phone]
== END | disposition home or self-care (01) ==
LOC: M.SUR 07:04
PROVIDERS: ATTEND Surgery
DX: C50.911 Malignant neoplasm of unspecified site of right female breast (principal); C50.912 Malignant neoplasm of unspecified site of left female breast; D36.0 Benign neoplasm of lymph nodes; N60.32 Fibrosclerosis of left breast; N64.1 Fat necrosis of breast; L92.3 Foreign body granuloma of the skin and subcutaneous tissue; E11.9 Type 2 diabetes mellitus without complications; I48.91 Unspecified atrial fibrillation; I48.92 Unspecified atrial flutter; I73.9 Peripheral vascular disease, unspecified; F32.9 Major depressive disorder, single episode, unspecified; Z98.890 Other specified postprocedural states; Z79.899 Other long term (current) drug therapy; Z79.01 Long term (current) use of anticoagulants; Z86.73 Personal history of transient ischemic attack (TIA), and cerebral infarction without residual deficits

== ENCOUNTER 2021-05-11 19:44 | Inpatient (IN) | payer OTHER ==
[~2021-05-11] VITALS: Ht 165.1 cm; Wt 76.3 kg
--- NOTE | ~2021-05-11 | EMS ---
[address] [address] EMS Patient Care Report Name: FADIA HALL Room: [address]#: [id number] Admission: 05/11/21 Attend Phys: Ivett Berger Discharge: 05/17/21 Date of : 41 Report #: [id number] THIS REPORT FOR: //name// Report Transmitted: 05/21/2021 10:05 EMS Care Summary [facility] [place] Incident [id number] @ 05/18/2021 17:43 Incident Location [id number] [place] [address] Patient Fadia Hall Female, 76 Years 1945 Patient Address [address] [place] [address] Patient History Hypothyroidism, unspecified,Atrial Fibrillation,Hypertension (HTN), Patient Allergies No known allergies, Patient Medications Eliquis, Chief Complaint Fall Disposition Transported No Lights/[place] Dispatch Reason Falls Transported To [facility] Narrative Dispatched for a fall. Pt found lying in a bed, daughter at the bedside. Pt alert and oriented x2, GCS 14 which is her baseline. Respirations even and unlabored. Skin pink, warm and dry. Pt in no obvious distress. Denied any complaints. Daughter reported that the pt was sitting on the toilet and fell [address] [address] EMS Patient Care Report Name: FADIA HALL Room: [address]#: [id number] Admission: 05/11/21 Attend Phys: Ivett Berger Discharge: 05/17/21 Date of : 41 Report #: [id number] off sideways, hitting her head on a trashcan and getting a small abrasion to the right shoulder. No obvious injuries other than small abrasion. No bleeding. Pt able to stand and sit on the cot. Pt was secured and moved to the ambulance. Vitals obtained. Transport initiated. Pupils PERRL. Pt denied any complaints during transport and rested comfortably on the cot. Pt was monitored during transport and remained stable. Pt was moved into the ER and transferred to the bed. Report was given and pt care transferred. Initial Vitals @18:02P: 94,R: 18,BP: 166/83,Revised Trauma: 8, @18:02GCS: 14, @17:54 Assessments @17:54MENTAL:SKIN:HEENT:LUNG SOUNDS:ABDOMEN:PELVIS//GI:EXTREMITIES:PULSE:NEURO: Impression Injury Timeline 17:42,Dispatch Notified 17:42,Psap Call 17:43,Dispatched 17:43,En Route 17:45,Call Received 17:52,On Scene 17:54,At Patient 17:54,BP: / M,PULSE: ,RR: R,SPO2: Ox,ETCO2: ,BG: ,PAIN: ,GCS: , 18:02,Depart Scene 18:02,BP: 166/83 M,PULSE: 94,RR: 18 R,SPO2: Ox,ETCO2: ,BG: ,PAIN: ,GCS: , 18:02,BP: / M,PULSE: ,RR: R,SPO2: Ox,ETCO2: ,BG: ,PAIN: ,GCS: 14, 18:11,At Destination 18:19,Call Closed Disclaimer v1.1 Copyright 2021 [employer] This EMS Care Summary contains data elements from the applicable legal record (which may be displayed differently). It is designed to provide pertinent information for the following purposes: continuity of care, clinical quality, and state data reporting. The complete legal record is available to ED staff and administrators of the receiving hospital in [employer]'s Patient Tracker. All data is provided "as is."
[2021-05-11 19:52] VITALS: BP 175/77
[2021-05-11 20:10] LABS: ABSOLUTE EOSINOPHILS 0.1 thou/uL (0.0-0.7); ABSOLUTE LYMPHOCYTES 2.1 thou/uL (0.8-5.3); ABSOLUTE MONOCYTES 0.6 thou/uL (0.0-1.2); ABSOLUTE NEUTROPHILS 4.1 thou/uL (1.6-8.1); BASOPHILS 0.6 %; EOSINOPHILS 2.1 %; HEMATOCRIT 45.3 % (37.0-47.0); HEMOGLOBIN 15.3 gm/dL (12.0-15.0); LYMPHOCYTES 30.5 %; MCH 28.9 pg (26.0-34.0); MCHC 33.8 g/dL (28.0-37.0); MCV 85.3 fL (80.0-100.0); MPV 8.2 fl. (7.2-11.1); NUCLEATED RBCS 0 /100WBC; PLATELET COUNT* 164 thou/uL (150-400); POLYS 58.8 %; RBC 5.31 mil/uL (4.20-5.00)
[2021-05-11 20:17] LABS: CALCIUM 9.3 mg/dL (8.5-10.1); CREATININE 1.6 mg/dL (0.6-1.3); POTASSIUM 3.6 mmol/L (3.5-5.1)
[2021-05-11 20:21] LABS: APTT 25.7 Seconds (25.0-31.3); INR 1.1; PROTIME 11.4 Seconds (9.20-11.50)
[2021-05-11 20:25] LABS: ALBUMIN 4.3 g/dL (3.4-5.0); TOTAL BILIRUBIN 0.9 mg/dL (<0.1-1.0)
[2021-05-11 21:16] LABS: BE -1.7 mmol/L (-2 to +3); PCO2 31.8 mmHg (35.0-45.0); PO2 71.2 mmHg (75.0-100.0); pH 7.444 (7.340-7.450)
[2021-05-11 22:50] VITALS: BP 158/86
[2021-05-11 23:15] VITALS: BP 150/68
[2021-05-12 03:45] VITALS: BP 1389/69
[2021-05-12 08:00] VITALS: BP 131/67
--- NOTE | 2021-05-12 10:01 | EKG ---
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 : 1945 Requested By: Dina Han Order Number: [id number] MD: Michael Manuel Measurements Intervals [place] Rate: 73 P: -43 [place]: 139 QRS: 7 QRSD: 110 T: -22 QT: 469 QTc: 517 Interpretive Statements Sinus rhythm Probable anterior infarct, old Borderline T abnormalities, inferior leads Prolonged QT interval Compared to ECG 03/26/2020 09:24:08 Prolonged QT interval now present Myocardial infarct finding still present Electronically Signed On 05-12-2021 10:01:20 HOT FRAME TENDER by Michael Manuel [email or web address] <ELECTRONICALLY SIGNED> By: Michael Manuel MD, FACC 05/12/21 1001 55 55 Michael Manuel MD, FAC /EPI
[2021-05-12 11:55] VITALS: BP 141/68
[2021-05-12 12:50] LABS: ALBUMIN 3.3 g/dL (3.4-5.0); CALCIUM 8.2 mg/dL (8.5-10.1); CREATININE 1.1 mg/dL (0.6-1.3); TOTAL BILIRUBIN 0.4 mg/dL (<0.1-1.0); TOTAL PROTEIN 5.8 g/dL (6.4-8.2)
[2021-05-12 12:56] LABS: POTASSIUM 2.8 mmol/L (3.5-5.1)
--- NOTE | 2021-05-12 16:40 | 2DMMODE ---
[place] [address] 2 D/M-MODE ECHOCARDIOGRAM Name: SUZANNADIANA Ana Maria Room: [address] IN [place].#: [id number] Admission: 05/11/21 Attend Phys: Nnamdi Rodriguez Discharge: Date of : 41 Date of Service: 05/12/21 [facility] Report #: [id number] THIS REPORT FOR: cc: Jessenia Muniz,Jessenia Vicente,Michael Skaggs MD [facility] ~ APPROVED REPORT Study performed: 05/12/2021 15:25:14 EXAM: Comprehensive 2D, Doppler, and color-flow Echocardiogram Patient Location: In-Patient Room #: [facility] Status: routine BSA: 1.84 HR: 74 bpm BP: 141/68 mmHg Rhythm: NSR Other Information Study Quality: Good Indications CVA/TIA Diabetes Echo Enhancing Agent Indication: Rule out Shunt Agent(s) / Amount(s) Used: Agitated Saline 10 cc 2D Dimensions IVSd: 11.01 (7-11mm) LVOT Diam: 18.96 (18-24mm) LVDd: 44.10 mm PWd: 10.41 (7-11mm) Ascending Ao: 28.46 (22-36mm) LVDs: 31.95 (25-40mm) Aortic Root: 32.87 mm Volumes Left Atrial Volume (Systole) LA ESV Index: 29.90 mL/m2 Aortic Valve AoV Peak Charles.: 1.80 m/s AO Peak Gr.: 12.97 mmHg LVOT Max P.73 mmHg [facility] [address] [place] [address] 2 D/M-MODE ECHOCARDIOGRAM Name: DIANA BRISENO Room: [address]#: [id number] Admission: 05/11/21 Attend Phys: Nnamdi Rodriguez Discharge: Date of : 41 Date of Service: 05/12/21 1640 Report #: [id number] Mean Gr.: 8.30 mmHg LVOT Mean P.71 mmHg LVOT Max V: 0.97 m/s AO V2 VTI: 36.06 cm LVOT Mean V: 0.59 m/s ANNIE (VTI): 1.64 cm2 LVOT V1 VTI: 21.01 cm AI [place]: 3.18 m/s2 AI PHT: 453.21 ms Mitral Valve E/A Ratio: 0.57 MV Decel. Time: 171.34 ms MV E Max Charles.: 0.64 m/s MV PHT: 49.69 ms MVA (PHT): 4.43 cm2 TDI E/Lateral E': 9.14 E/Medial E': 9.14 Medial E' Charles.: 0.07 m/s Lateral E' Charles.: 0.07 m/s Pulmonary Valve PV Peak Charles.: 0.95 m/s PV Peak Gr.: 3.64 mmHg Tricuspid Valve RAP Estimate: 5.00 mmHg TR Peak Gr.: 23.78 mmHg RVSP: 28.00 mmHg PA Pressure: 28.00 mmHg Left Ventricle The left ventricle is normal size. There is normal LV segmental wall motion. There is normal left ventricular wall thickness. Left ventricular systolic function is normal. The left ventricular ejection fraction is within the normal range. LVEF is 55-60%. Grade I - abnormal relaxation pattern. Right Ventricle The right ventricle is normal size. The right ventricular systolic function is normal. Atria Left atrium is mildly dilated. The interatrial septum is intact with no evidence for an atrial septal defect. The right atrium size is normal. Aortic Valve Aortic valve is calcified. Moderate aortic regurgitation. [place] [address] 2 D/M-MODE ECHOCARDIOGRAM Name: DIANA BRISENO Room: [address] [place] [facility]#: [id number] Admission: 05/11/21 Attend Phys: Nnamdi Rodriguez Discharge: Date of : 41 Date of Service: 05/12/21 [facility] Report #: [id number] Mitral Valve The mitral valve is normal in structure. Mild mitral regurgitation. No evidence of mitral valve stenosis. Tricuspid Valve The tricuspid valve is normal in structure. Mild tricuspid regurgitation. Mild pulmonary hypertension. Pulmonic Valve The pulmonary valve is normal in structure. There is trace pulmonic valvular regurgitation. Great Vessels The aortic root is normal in size. IVC is normal in size and collapses >50% with inspiration. Pericardium There is no pericardial effusion. <Conclusion> LVEF is 55-60%. Left atrium is mildly dilated. Mild aortic stenosis. Moderate aortic regurgitation. Mild mitral regurgitation. The interatrial septum is intact with no evidence for an atrial septal defect. <ELECTRONICALLY SIGNED> By: Michael Manuel MD, FACC 05/12/21 1640 1640 1640 Michael Manuel MD, FACC /INF
[2021-05-12 17:07] VITALS: BP 140/64
[2021-05-12 21:00] VITALS: BP 156/72
[2021-05-13 02:06] LABS: GLYCOHEMOGLOBIN (HGB A1C) 11.3 % (4.8-5.6)
[2021-05-13 04:18] VITALS: BP 162/86
[2021-05-13 05:03] LABS: CHOLESTEROL 196 mg/dL (<200); HDL CHOLESTEROL 38 mg/dL (>40); LDL CHOLESTEROL 129 mg/dL (<100); TC:HDL 5.2 Ratio (Not establshd); TRIGLYCERIDE 146 mg/dL (<150); VLDL 29 mg/dL (<40)
[2021-05-13 05:05] LABS: SERUM ASSESSMENT Clear
[2021-05-13 08:00] VITALS: BP 179/91
[2021-05-13 09:45] LABS: POTASSIUM 3.1 mmol/L (3.5-5.1)
[2021-05-13 09:49] LABS: MAGNESIUM 1.4 mg/dL (1.8-2.4); PHOSPHORUS* 3.5 mg/dL (2.5-4.9)
[2021-05-13 10:14] VITALS: BP 179/91
[2021-05-13 16:54] VITALS: BP 142/70
[2021-05-13 22:00] VITALS: BP 187/98
[2021-05-14] VITALS (20 sets, daily range): BP systolic 115–177; BP diastolic 60–96
[2021-05-14 12:26] LABS: ABSOLUTE EOSINOPHILS 0.2 thou/uL (0.0-0.7); ABSOLUTE LYMPHOCYTES 1.5 thou/uL (0.8-5.3); ABSOLUTE MONOCYTES 0.4 thou/uL (0.0-1.2); ABSOLUTE NEUTROPHILS 3.6 thou/uL (1.6-8.1); BASOPHILS 0.4 %; EOSINOPHILS 3.9 %; HEMATOCRIT 39.7 % (37.0-47.0); HEMOGLOBIN 13.6 gm/dL (12.0-15.0); LYMPHOCYTES 26.3 %; MCH 28.8 pg (26.0-34.0); MCHC 34.3 g/dL (28.0-37.0); MCV 83.9 fL (80.0-100.0); MONOCYTES 7.7 %; MPV 8.7 fl. (7.2-11.1); NUCLEATED RBCS 0 /100WBC; PLATELET COUNT* 139 thou/uL (150-400); POLYS 61.7 %; RBC 4.73 mil/uL (4.20-5.00); RDW-CV 14.7 % (10.5-14.5); WBC 5.8 thou/uL (4.0-11.0)
[2021-05-14 12:36] LABS: CALCIUM 8.3 mg/dL (8.5-10.1); CREATININE 1.1 mg/dL (0.6-1.3); POTASSIUM 3.9 mmol/L (3.5-5.1)
--- NOTE | 2021-05-14 13:41 | CON ---
[address] [address] CONSULTATION Name: DIANA BRISENO Room: [address] IN M.R.#: [id number] Admission: 05/11/21 Attend Phys: Ivett Berger Discharge: Date of : 41 Report #: [id number] THIS REPORT FOR: cc: Jessenia Muniz Linda J. DO Khosla,Roberto Queen MD ~ DATE OF CONSULTATION: 05/12/2021 HISTORY OF PRESENT ILLNESS: This 76-year-old female patient who was evaluated by me for altered mental status. It is not clear how long it is going on. The patient is not a good historian. When the patient's daughter visited this patient, she found her to be naked and disoriented. I do not know what her baseline is. 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 So I do not know how long this is going on, but the process looks chronic. REVIEW OF SYSTEMS: Positive for TIA, CVA, diabetes, thyroid problems, atrial fibrillation, frozen joints, depression, aortic dissection, polyps removed from the colon. This was a relevant 14-point review of systems. Presently, she is not complaining of anything. She says she is in the hospital because she is a diabetic. The patient is not complaining of any eye, ENT, cardiac, respiratory, GI, , musculoskeletal, constitutional, dermatological, hematological, psychiatric, throat, allergic symptom associated with present symptomatology. PAST MEDICAL HISTORY: Unavailable. It is not known what the patient's baseline is. FAMILY HISTORY: According to her is negative for early age stroke, but she is not a reliable historian. SOCIAL HISTORY: She says she does not drink alcohol, but have to confirm that history from some other source. PHYSICAL EXAMINATION: She knew what month was it. She did not know what date it was. She did not tell me what hospital she is in. She could not name the president. Cranial nerve examination 2-12 were the best it could be carried out. It looks unremarkable. Neuromuscular examination for strength, sensation, reflexes and tone is symmetrical. She did pretty well with the position sense. Reflexes are present, although somewhat diminished. Pulses are somewhat difficult to feel, but are palpable, but there is no edema. There is no cyanosis or jaundice. Her hearing and vision looks adequate. There is no thyroid mass. There is no atrial fibrillation on cardiac examination. No respiratory difficulty. Blood pressure is 146/64, respirations 18, pulse is 71, temperature is 98.9. [place] [address] CONSULTATION Name: SUZANNADIANA E Room: [address] IN M.R.#: [id number] Admission: 05/11/21 Attend Phys: Ivett Berger Discharge: Date of : 41 Report #: [id number] DIAGNOSTIC DATA: CT scan shows atrophy. IMPRESSION: 1. Dementia. 2. It looks mostly chronic because she has a pretty significant atrophy on the brain and prior history of stroke. 3. Because of such memory deficit, it will be difficult to ascertain the compliance with the medication and rather she was even taking medications including anticoagulation. Because of this, I think some further workup is recommended. I will initially do the MRI and EEG. We will see if it shows some acute changes. Further workup will depend upon that. I will try to have talked to the hospitalist as well as try to talk to the patient's family tomorrow and see if we need to do something else or need to make some different living arrangement for her. Thank you very much for this referral. <ELECTRONICALLY SIGNED> By: Roberto Harden MD 05/14/21 1341 1832 11Roberto Harden MD /nt
--- NOTE | 2021-05-14 14:40 | TEE ---
[place] [address] TRANSESOPHAGEAL ECHOCARDIOGRAM Name: SUZANNADIANA Ana Maria Room: [address] IN [facility]#: [id number] Admission: 05/11/21 Attend Phys: Nnamdi Rodriguez Discharge: Date of : 41 Date of Service: 05/14/21 1439 Report #: [id number] THIS REPORT FOR: cc: Jessenia Muniz Linda J. DO Blick,Michael Skaggs MD [facility] ~ APPROVED REPORT Study performed: 05/14/2021 13:18:04 EXAM: Transesophageal Echocardiogram Patient Location: In-Patient Room #: [facility] Status: routine BSA: 1.84 HR: 74 bpm BP: 144/79 mmHg Rhythm: NSR Other Information Study Quality: Good Indications CVA/TIA Echo Enhancing Agent Indication: Rule out Shunt Agent(s) / Amount(s) Used: Agitated Saline 20 cc Comments: 2 bubble studies Procedure After obtaining informed consent, patient underwent transesophageal echo in the [employer]. Type of Sedation : Conscious Sedation Sedation was administered by Nicolette Peters RN. Sedation start time: 1325 Case end Time: 1339 Sedation was achieved intravenously with: Versed (4) Fentanyl (25) Transesophageal probe was inserted and advanced into esophagus without difficulty by Michael Manuel MD, [facility]. Echo enhancement indication: R/O Septal defect. Echo enhancement agent administered: Agitated Saline The BLUE was performed without complications. Throughout the procedure, the blood pressure, pulse oximetry, [place] [address] TRANSESOPHAGEAL ECHOCARDIOGRAM Name: DIANA BRISENO Room: [address]#: [id number] Admission: 05/11/21 Attend Phys: Nnamdi Rodriguez Discharge: Date of : 41 Date of Service: 05/14/21 1439 Report #: [id number] rhythm, and rate were monitored. The patient tolerated the procedure without adverse effects. Recovery from conscious sedation was uneventful and vital signs were stable. Left Ventricle The left ventricle is normal size. There is normal LV segmental wall motion. There is normal left ventricular wall thickness. Left ventricular systolic function is normal. The left ventricular ejection fraction is within the normal range. LVEF is 60-65%. Right Ventricle The right ventricle is normal size. The right ventricular systolic function is normal. A calcified moderator band is seen in the right ventricle. Atria The left atrium size is normal. No thrombus is visualized in the left atrium or appendage. The interatrial septum is intact with no evidence for an atrial septal defect. Atrial septal aneurysm is present. The right atrium size is normal. Aortic Valve Mild aortic valve sclerosis. Mild aortic regurgitation. There is no aortic valvular stenosis. Mitral Valve The mitral valve is normal in structure. Mild mitral regurgitation. No evidence of mitral valve stenosis. Tricuspid Valve The tricuspid valve is normal in structure. There is no tricuspid valve regurgitation noted. Pulmonic Valve Pulmonic valve is not well visualized. There is no pulmonic valvular regurgitation. Great Vessels The aortic root is normal in size. atherosclerotic plaque is present in the descending aorta. Pericardium There is no pericardial effusion. <Conclusion> [place] [address] TRANSESOPHAGEAL ECHOCARDIOGRAM Name: DIANA BRISENO Room: [address] IN M.R.#: [id number] Admission: 05/11/21 Attend Phys: Nnamdi Rodriguez Discharge: Date of : 41 Date of Service: 05/14/21 1439 Report #: [id number] LVEF is 60-65%. The left atrium size is normal. No thrombus is visualized in the left atrium or appendage. Mild aortic regurgitation. Mild mitral regurgitation. The interatrial septum is intact with no evidence for an atrial septal defect. Atrial septal aneurysm is present. <ELECTRONICALLY SIGNED> By: Michael Manuel MD, [facility] 05/14/211438 38 1439 Michael Manuel MD, FACC /INF
[2021-05-14 19:24] LABS: URINE BILIRUBIN NEGATIVE (Negative); URINE BLOOD 3+ (Negative); URINE COLOR YELLOW; URINE GLUCOSE-RANDOM 2+ (Negative); URINE KETONES NEGATIVE (Negative); URINE LEUKOCYTES-REFLEX NEGATIVE (Negative); URINE NITRITE-REFLEX NEGATIVE (Negative); URINE PROTEIN NEGATIVE (Negative); URINE SPECIFIC GRAVITY 1.025 (1.005-1.030); URINE UROBILINOGEN 0.2 E.U./dl (0.2-1.0)
[2021-05-14 19:27] LABS: URINE CLARITY SL HAZY
[2021-05-14 19:30] LABS: CRYSTALS None Seen /LPF (None Seen); HYALINE CASTS 0-3 Few /LPF (None Seen); MUCUS None Seen strn/LPF (None Seen); SQUAMOUS >10 Many /LPF (0-3)
[2021-05-14 19:31] LABS: URINE WBC-REFLEX 0-5 Rare /HPF (0-5)
[2021-05-14 19:32] LABS: BACTERIA-REFLEX 1-9 Few /HPF (None Seen)
[2021-05-15] VITALS: BP 148/85
[2021-05-15 04:00] VITALS: BP 166/65
[2021-05-15 08:00] VITALS: BP 132/71
[2021-05-15 11:54] VITALS: BP 90/47
[2021-05-15 15:39] VITALS: BP 134/70
[2021-05-15 19:07] LABS: ANA INTERPRETATION Negative (())
[2021-05-15 20:34] VITALS: BP 162/79
[2021-05-16] VITALS (7 sets, daily range): BP systolic 107–174; BP diastolic 64–83
[2021-05-17 00:20] VITALS: BP 162/89
[2021-05-17 04:37] VITALS: BP 131/74
[2021-05-17 08:00] VITALS: BP 148/88
[2021-05-17 12:00] VITALS: BP 135/100
[2021-05-18] MEDS ORDERED: SYNTHROID75 MC1 PO (18:52)
[2021-05-18] MEDS ORDERED: TYLENOL325 MG PO (18:52)
== END 2021-05-17 17:29 | DRG 64 ==
LOC: M.ERS 19:44 → M.2W 21:20 → M.TBA-ER 21:20 → M.2W 21:20
PROVIDERS: Internal Medicine; Personal Emergency Response Attendant; Psychiatry & Neurology Neuromuscular Medicine; ADMIT Internal Medicine; ATTEND Internal Medicine
DX: I63.9 Cerebral infarction, unspecified (principal); G93.41 Metabolic encephalopathy; N17.9 Acute kidney failure, unspecified; I69.351 Hemiplegia and hemiparesis following cerebral infarction affecting right dominant side; E03.9 Hypothyroidism, unspecified; F03.90 Unspecified dementia, unspecified severity, without behavioral disturbance, psychotic disturbance, mood disturbance, and anxiety; R53.81 Other malaise; G31.9 Degenerative disease of nervous system, unspecified; I48.91 Unspecified atrial fibrillation; F32.A Depression, unspecified; E11.65 Type 2 diabetes mellitus with hyperglycemia; Z20.822 Contact with and (suspected) exposure to COVID-19; Z28.21 Immunization not carried out because of patient refusal; Z86.010 Personal history of colon polyps; Z79.899 Other long term (current) drug therapy; Z79.01 Long term (current) use of anticoagulants; Z79.84 Long term (current) use of oral hypoglycemic drugs

== ENCOUNTER 2021-05-18 18:13 | Emergency (ER) | payer OTHER ==
[~2021-05-18] VITALS: Ht 167.6 cm; Wt 79.4 kg
--- NOTE | ~2021-05-18 | EMS ---
[facility] [address] [place] [address] EMS Patient Care Report Name: FADIA HALL [facility] Jannet#: [id number] Admission: 05/18/21 Attend Phys: Discharge: 05/18/21 Date of : 41 Report #: [id number] THIS REPORT FOR: //name// Report Transmitted: 05/21/2021 10:06 EMS Care Summary [facility] [place] Incident [id number] @ 05/18/2021 17:43 Incident Location [id number] [place] [address] Patient Fadia Hall Female, 76 Years 1945 Patient Address [address] [place] [address] Patient History Hypothyroidism, unspecified,Atrial Fibrillation,Hypertension (HTN), Patient Allergies No known allergies, Patient Medications Eliquis, Chief Complaint Fall Disposition Transported No Lights/[place] Dispatch Reason Falls Transported To [facility] Narrative Dispatched for a fall. Pt found lying in a bed, daughter at the bedside. Pt alert and oriented x2, GCS 14 which is her baseline. Respirations even and unlabored. Skin pink, warm and dry. Pt in no obvious distress. Denied any complaints. Daughter reported that the pt was sitting on the toilet and fell [address] [address] EMS Patient Care Report Name: FADIA HALL Room: [facility]#: [id number] Admission: 05/18/21 Attend Phys: Discharge: 05/18/21 Date of : 41 Report #: [id number] off sideways, hitting her head on a trashcan and getting a small abrasion to the right shoulder. No obvious injuries other than small abrasion. No bleeding. Pt able to stand and sit on the cot. Pt was secured and moved to the ambulance. Vitals obtained. Transport initiated. Pupils PERRL. Pt denied any complaints during transport and rested comfortably on the cot. Pt was monitored during transport and remained stable. Pt was moved into the ER and transferred to the bed. Report was given and pt care transferred. Initial Vitals @18:02P: 94,R: 18,BP: 166/83,Revised Trauma: 8, @18:02GCS: 14, @17:54 Assessments @17:54MENTAL:SKIN:HEENT:LUNG SOUNDS:ABDOMEN:PELVIS//GI:EXTREMITIES:PULSE:NEURO: Impression Injury Timeline 17:42,Dispatch Notified 17:42,Psap Call 17:43,Dispatched 17:43,En Route 17:45,Call Received 17:52,On Scene 17:54,At Patient 17:54,BP: / M,PULSE: ,RR: R,SPO2: Ox,ETCO2: ,BG: ,PAIN: ,GCS: , 18:02,Depart Scene 18:02,BP: 166/83 M,PULSE: 94,RR: 18 R,SPO2: Ox,ETCO2: ,BG: ,PAIN: ,GCS: , 18:02,BP: / M,PULSE: ,RR: R,SPO2: Ox,ETCO2: ,BG: ,PAIN: ,GCS: 14, 18:11,At Destination 18:19,Call Closed Disclaimer v1.1 Copyright 2021 [employer] This EMS Care Summary contains data elements from the applicable legal record (which may be displayed differently). It is designed to provide pertinent information for the following purposes: continuity of care, clinical quality, and state data reporting. The complete legal record is available to ED staff and administrators of the receiving hospital in [employer] Patient Tracker. All data is provided "as is."
[2021-05-18] MEDS ORDERED: SYNTHROID75 MC1 PO (18:52)
[2021-05-18] MEDS ORDERED: TYLENOL325 MG PO (18:52)
[2021-05-18 21:33] VITALS: BP 143/68
--- NOTE | 2021-05-19 09:54 | EKG ---
[place] [address] ELECTROCARDIOGRAM REPORT Name: DIANA BRISENO Room: [facility]#: [id number] Admission: 05/18/21 Attend Phys: Discharge: 05/18/21 Date of : 41 Date of Service: 05/18/211816 Report #: [id number] THIS REPORT FOR: //name// [facility] ED Test Date: 2021-05-18 Test Time: 18:17:37 Pat Name: DIANA BRISENO Department: Room: Gender: Underground [employer] [place] 1945 Requested By: Lidia Coyne Order Number: [id number] MD: Michael Manuel Measurements Intervals [place] Rate: 86 P: 36 CA: 186 QRS: -19 QRSD: 101 T: 133 QT: 363 QTc: 434 Interpretive Statements Sinus rhythm Atrial premature complexes Borderline left axis deviation Anterior infarct, old Compared to ECG 05/11/2021 19:56:37 Atrial premature complex(es) now present Prolonged QT interval no longer present Myocardial infarct finding still present Electronically Signed On 05-19-2021 9:54:28 PHYSICIAN INTERVENTIONAL CARDIOLOGIST by Michael Manuel [email or web address] <ELECTRONICALLY SIGNED> By: Michael Manuel MD, FAC 05/19/21 0954 16 16 Michael Manuel MD, FAC /EPI
== END 2021-05-18 21:43 | disposition home or self-care (01) ==
LOC: M.ERS 18:13
DX: S09.90XA Unspecified injury of head, initial encounter (principal); E11.9 Type 2 diabetes mellitus without complications; F32.9 Major depressive disorder, single episode, unspecified; Z90.89 Acquired absence of other organs; Z79.899 Other long term (current) drug therapy; W19.XXXA Unspecified fall, initial encounter; Y93.89 Activity, other specified; Y92.89 Other specified places as the place of occurrence of the external cause; Y99.8 Other external cause status